=== PATIENT | female | born 1935 | race Hispanic/Latino ===

== ENCOUNTER 2018-12-07 09:54 | Outpatient (CLI) | payer MEDICARE ==
[2018-12-07 11:09] LABS: Chol/HDL Ratio 3.12 %
== END 2018-12-07 09:55 | disposition home or self-care (01) ==
LOC: LAB 09:54
PROVIDERS: ATTEND Internal Medicine
DX: Z00.01 Encounter for general adult medical examination with abnormal findings (principal); E03.9 Hypothyroidism, unspecified; E78.5 Hyperlipidemia, unspecified; I10 Essential (primary) hypertension; M54.10 Radiculopathy, site unspecified; R73.9 Hyperglycemia, unspecified
CPT/HCPCS: 36415; 80061; 83036; 84443

== ENCOUNTER 2019-05-10 09:28 | Outpatient (CLI) | payer MEDICARE ==
[2019-05-10 10:44] LABS: Chol/HDL Ratio 2.9 %
== END 2019-05-10 09:29 | disposition home or self-care (01) ==
LOC: LAB 09:28
PROVIDERS: ATTEND Internal Medicine
DX: E78.5 Hyperlipidemia, unspecified (principal); R73.9 Hyperglycemia, unspecified
CPT/HCPCS: 36415; 80061; 83036

== ENCOUNTER 2019-06-01 10:37 | Outpatient (CLI) | payer MEDICARE ==
[2019-06-01 11:23] LABS: Bacteria,Urine 4+ /HPF (Negative); Bilirubin,Urine NEG (Negative); Blood,Urine NEG (Negative); Color,Urine Yellow (Yellow); Mucus,Urine FEW /HPF; Protein,Urine <15 mg/dL mg/dL (Negative); Urobilinogen,Urine < 2.0 mg/dL (<2.0)
[2019-06-01 11:25] LABS: WBC,Urine > 182.0 /HPF (0.0-6.0)
== END 2019-06-01 10:38 | disposition home or self-care (01) ==
LOC: LAB 10:37
PROVIDERS: ATTEND Internal Medicine
DX: N39.0 Urinary tract infection, site not specified (principal)
CPT/HCPCS: 81001; 87076; 87086; 87186

== ENCOUNTER 2019-10-02 10:01 | Outpatient (CLI) | payer MEDICARE ==
[2019-10-02 11:49] LABS: Basophils % (Auto) 0.2 % (0.0-1.8); Eosinophils # (Auto) 0.2 K/mm3 (0.0-0.4); Eosinophils % (Auto) 3.2 % (0.0-4.3); Hematocrit 37.8 % (30.3-42.9); Hemoglobin 12.6 gm/dl (10.1-14.3); Lymphocytes % (Auto) 18.2 % (13.4-35.0); Mean Corpuscular HGB Conc 33 % (30-34); Mean Corpuscular Volume 89 fl (79-97); Monocytes # (Auto) 0.4 K/mm3 (0.0-0.8); Monocytes % (Auto) 6.2 % (0.0-7.3); Platelet Count 293 K/mm3 (140-440); Red Blood Count 4.23 M/mm3 (3.65-5.03); Red Cell Distribution Width 13.6 % (13.2-15.2)
[2019-10-02 11:55] LABS: Bacteria,Urine 4+ /HPF (Negative); Mucus,Urine FEW /HPF
[2019-10-02 12:00] LABS: Albumin 4.2 g/dL (3.9-5); Calcium 9.4 mg/dL (8.4-10.2)
[2019-10-02 12:10] LABS: Color,Urine Yellow (Yellow); WBC,Urine > 182.0 /HPF (0.0-6.0)
[2019-10-02 12:11] LABS: Bilirubin,Urine Negative (Negative); Blood,Urine Negative (Negative); Urobilinogen,Urine < 0.2 mg/dL (<2.0)
[2019-10-05 10:47] LABS: Vitamin D, 25-OH, D2 <4 ng/mL
== END 2019-10-02 10:02 | disposition home or self-care (01) ==
LOC: LAB 10:01
PROVIDERS: ATTEND Internal Medicine
DX: R73.03 Prediabetes (principal); E78.5 Hyperlipidemia, unspecified; N39.0 Urinary tract infection, site not specified; E03.9 Hypothyroidism, unspecified; Z13.21 Encounter for screening for nutritional disorder
CPT/HCPCS: 36415; 80053; 80061; 81001; 82306; 82607; 83036; 84443; 85025

== ENCOUNTER 2021-02-13 13:50 | Inpatient (IN) | payer MEDICARE ==
[2021-02-13] MEDS ORDERED: HYDROmorphone 1 MG/1 ML INJ ONE (14:27)
[2021-02-13] MEDS ORDERED: ONDANSETRON 4 MG/2 ML INJ ONE (14:27)
[2021-02-13] MEDS ORDERED: SODIUM CHLORIDE 0.9% 1000 ML 1,000 ML IV ONE (14:29)
[2021-02-13] MEDS ORDERED: HYDROmorphone 1 MG/1 ML INJ IV ONE ×2 (14:29→16:05)
[2021-02-13] MEDS ORDERED: ONDANSETRON 4 MG/2 ML INJ IV ONE (14:29)
--- NOTE | 2021-02-13 14:35 | Emergency Department Report ---
ED Fall HPI - General Chief Complaint: Extremity Injury, Lower Stated Complaint: HIP INJURY Time Seen by Provider: 02/13/21 14:27 Source: patient, EMS Mode of arrival: Stretcher - History of Present Illness Initial Comments: Patient is 85 years old female with no significant past medical history. Patient brought to the emergency room via EMS from home for evaluation after fall. Patient stated that she was tackled by her dog and she could not have anything to hold on and fell and landed on her left hip. Patient denied any head injury neck injury or back injury. EMS reported deformity to the left hip. Left lower extremity externally rotated. Patient received fentanyl 100 mg by EMS with no significant improvement. Upon arrival to the ER patient in severe pain. MD Complaint: fall - Related Data Allergies Allergy/AdvReac Type Severity Reaction Status Date / Time Penicillins Allergy Unknown Verified 02/13/21 14:16 Sulfa (Sulfonamide Allergy Unknown Verified 02/13/21 14:16 Antibiotics) ED Review of Systems ROS: Stated complaint: HIP INJURY Other details as noted in HPI Comment: All other systems reviewed and negative Constitutional: denies: chills, fever Respiratory: denies: cough, shortness of breath, SOB with exertion Cardiovascular: denies: chest pain, palpitations Gastrointestinal: denies: abdominal pain, nausea, vomiting Musculoskeletal: denies: back pain Neurological: denies: headache, weakness, numbness, paresthesias, confusion ED Past Medical Hx - Past Medical History Previous Medical History?: Yes - Surgical History Additional Surgical History: Hysterctomy - Social History Smoking Status: Never Smoker ED Physical Exam - General Limitations: Physical Limitation General appearance: alert, in distress - Head Head exam: Present: atraumatic, normocephalic, normal inspection - Eye Eye exam: Present: normal appearance, PERRL - ENT ENT exam: Present: normal exam, normal orophraynx, mucous membranes moist - Neck Neck exam: Present: normal inspection, full ROM. Absent: tenderness, meningismus - Respiratory Respiratory exam: Present: normal lung sounds bilaterally - Cardiovascular Cardiovascular Exam: Present: regular rate, normal rhythm, normal heart sounds - GI/Abdominal GI/Abdominal exam: Present: soft, normal bowel sounds. Absent: distended, tenderness, guarding, rebound, rigid, organomegaly, mass, bruit, pulsatile mass, hernia - Extremities Exam Extremities exam: Present: normal inspection, full ROM, normal capillary refill. Absent: tenderness - Back Exam Back exam: Present: normal inspection, full ROM. Absent: CVA tenderness (R), CVA tenderness (L) - Neurological Exam Neurological exam: Present: alert, oriented X3, CN II-XII intact - Psychiatric Psychiatric exam: Present: normal mood - Skin Skin exam: Present: warm, intact, normal color ED Course Vital Signs 02/13/21 02/13/21 02/13/21 14:02 14:15 14:20 Temperature Pulse Rate 62 62 68 Respiratory 14 11 L 12 Rate Blood Pressure Blood Pressure 151/59 [Left] O2 Sat by Pulse 97 97 Oximetry 02/13/21 02/13/21 02/13/21 14:45 15:20 18:01 Temperature 97.7 F Pulse Rate 64 Respiratory 12 Rate Blood Pressure 157/73 175/84 Blood Pressure [Left] O2 Sat by Pulse 90 100 Oximetry - Consultations Consultation #1: 02/13/21 16:35 I discussed the patient with Dr. Loza. He reviewed the images. Dr. Loza stated that he is unable to take the patient because he is traveling tomorrow and he advised to transfer the patient to another facility for further management. ED Medical Decision Making - Lab Data Result diagrams: 02/13/21 14:37 02/13/21 14:37 - Radiology Data Radiology results: report reviewed - Medical Decision Making Patient is 85 years old female with no significant past medical history. Patient brought to the emergency room via EMS from home for evaluation after fall. Patient stated that she was tackled by her dog and she could not have anything to hold on and fell and landed on her left hip. Patient denied any head injury neck injury or back injury. EMS reported deformity to the left hip. Left lower extremity externally rotated. Patient received fentanyl 100 mg by EMS with no significant improvement. Upon arrival to the ER patient in severe p ain. Patient received multiple pain medication. Left femur x-ray showed mildly displaced intertrochanteric fracture. I discussed the patient with Dr. Otero from [facility] orthopedics, he accepted the patient to be transferred to [place] for further management. I received a call from the hospital [employer] indicating that she can help accommodate the patient surgery in the morning. Dr. Loza accepted the patient to be admitted to the hospital. I discussed the patient with Dr. Reyes, hospitalist on-call he agreed to admit the patient for further management. I notified [place] that the patient is going to be admitted in our hospital and I thank them for their help. Critical Care Time: Yes Critical care time in (mins) excluding proc time.: 30 Critical care attestation.: If time is entered above; I have spent that time in minutes in the direct care of this critically ill patient, excluding procedure time. ED Disposition Clinical Impression: Closed intertrochanteric fracture of left femur Disposition: OP ADMIT IP TO THIS HOSP Is pt being admited?: Yes Condition: Stable Referrals: PRIMARY CARE, [Primary Care Provider] - 3-5 Days
[2021-02-13 15:01] LABS: Hematocrit 33.2 % (30.3-42.9); Hemoglobin 11.5 gm/dl (10.1-14.3); Mean Corpuscular HGB Conc 35 % (30-34); Mean Corpuscular Volume 88 fl (79-97); Platelet Count 296 K/mm3 (140-440); Red Blood Count 3.77 M/mm3 (3.65-5.03)
[2021-02-13 15:16] LABS: INR 1.08 (0.87-1.13)
[2021-02-13 15:17] LABS: Partial Thromboplastin Time 29.3 Sec. (24.2-36.6)
[2021-02-13 15:18] LABS: BUN/Creatinine Ratio 14; Blood Urea Nitrogen 11 mg/dL (7-17); Calcium 8.6 mg/dL (8.4-10.2); Hemolysis Index 3
--- NOTE | 2021-02-13 15:29 | XRay Report ---
CHEST 1 VIEW INDICATION: Fall. Pain. COMPARISON: None FINDINGS: Support devices: None. Heart: Within normal limits. Lungs/Pleura: No acute air space or interstitial disease. Additional findings: None. IMPRESSION: No acute findings. PELVIS ONE VIEW INDICATION: Fall, pain. COMPARISON: None. IMPRESSION: Mildly displaced intertrochanteric fracture is identified in the proximal left femur. Th e visualized right femur and pelvic bones are intact. Normal articulation at the hip joints. No sign ificant DJD. Signer Name: Nick Gupta Jr, MD Signed: 02/13/2021 3:25 PM Workstation Name: [id number]
[2021-02-13 16:11] LABS: Basophils % (Auto) 0.2 % (0.0-1.8); Eosinophils # (Auto) 0.3 K/mm3 (0.0-0.4); Eosinophils % (Auto) 2.2 % (0.0-4.3); Lymphocytes % (Auto) 8.1 % (13.4-35.0); Monocytes # (Auto) 0.5 K/mm3 (0.0-0.8)
[2021-02-13] MEDS ORDERED: fentaNYL 250 MCG/5 ML INJ IV ONE (18:54)
[2021-02-13] MEDS ORDERED: fentaNYL 100 MCG/2 ML INJ IV ONE (19:00)
[2021-02-13] MEDS ORDERED: ACETAMINOPHEN 325 MG TAB PO PRN (21:21)
[2021-02-13] MEDS ORDERED: HYDROcodone/ACETAMINOPHEN 5-325 MG TAB PO PRN (21:21)
[2021-02-13] MEDS ORDERED: NON-FORMULARY EACH (Levothyroxine Sodium [Levothyroxine] 100 MCG Capsule) PO SCH (21:30)
[2021-02-13] MEDS: ONDANSETRON 4 MG/2 ML INJ IV PRN (21:35)
[2021-02-13] MEDS ORDERED: OXCARBAZEPINE 150 MG PO SCH (22:00)
[2021-02-13] MEDS ORDERED: PROPRANOLOL HCL 60 MG PO SCH (22:00)
[2021-02-13] MEDS ORDERED: OXYMETAZOLINE OU SCH (22:00)
[2021-02-13] MEDS ORDERED: FAMOTIDINE 20 MG/2 ML INJ IV SCH (22:00)
[2021-02-13] MEDS ORDERED: PROPRANOLOL 40 MG TAB PO SCH (22:00)
[2021-02-13] MEDS: SODIUM CHLORIDE 0.9% 1000 ML 1,000 ML IV SCH (23:01)
[2021-02-13] MEDS: MORPHINE 4 MG/1 ML INJ IV PRN (23:02)
[2021-02-13] MEDS: TOBRADEX 0.1-0.3% OPHTH OINT 3.5 GM OU SCH (23:18)
[2021-02-13] MEDS: OXcarbazepine 150 MG TAB PO SCH (23:18)
[2021-02-13] MEDS: LATANOPROST 0.005% OPHTH SOLN 2.5 ML OU SCH (23:20)
[2021-02-14] MEDS ORDERED: propofoL 200 MG/20 ML VIAL IV ONE (05:25)
[2021-02-14] MEDS ORDERED: BUPIVACAINE/PF (0.5%) 5 MG/1 ML 30 ML VIAL INFILTRATI ONE ×2 (05:42→07:49)
[2021-02-14] MEDS ORDERED: MORPHINE 10 MG/1 ML INJ ONE (05:42)
[2021-02-14] MEDS ORDERED: KETOROLAC 30 MG/1 ML INJ ONE (05:42)
[2021-02-14] MEDS ORDERED: SODIUM CHLORIDE 0.9% 50 ML ONE (05:43)
[2021-02-14] MEDS ORDERED: SODIUM CHLORIDE 0.9% 100 ML ONE (05:43)
--- NOTE | 2021-02-14 06:17 | History and Physical Report ---
History of Present Illness Date of examination: 02/13/21 Date of admission: 02/13/21 19:05 Chief complaint: Left hip pain after fall this morning History of present illness: 85-year-old female with no significant past medical history had a fall this morning. Patient was apparently attacked by the dog and fell down and landed on her left hip. Painful range of motion of the left hip. EMS was called. There was no movement in the left lower extremity and was extremely painful. Left lower extremity was externally rotated. Patient received fentanyl 100 mg via IV route. In the emergency room patient is in severe pain with pain-pain is scale of 1-10. No significant past medical history. No fever or chills. Patient is a poor historian. - Past Medical History Previous Medical History?: Yes - Surgical History Additional Surgical History: Hysterctomy - Social History Smoking Status: Never Smoker faHtnmily history Htn Review of Systems ROS: Constitutional no weight loss or weight gain no fever or chills HEENT no sore throat no post nasal drip no diplopia Neck no neck stiffness no lymph gland enlargement Chest and lungs no shortness of breath cough or wheezing CVS no chest pain no diaphoresis no palpitations GI no nausea no vomiting no diarrhea Genitourinary system no dysuria no flank pain Musculoskeletal system severe left hip pain and decreased range of motion in the left hip SPINNER TENDER no altered sensorium Skin no rash no itching Psychiatric no depression no homicidal or suicidal tendencies Hematologic no lymphedema or bruising Endocrine no polydipsia no polyuria no cold intolerance no heat intolerance Medications and Allergies Allergies Allergy/AdvReac Type Severity Reaction Status Date / Time Penicillins Allergy Unknown Verified 02/13/21 14:16 Sulfa (Sulfonamide Allergy Unknown Verified 02/13/21 14:16 Antibiotics) Home Medications Medication Instructions Recorded Confirmed Last Taken Type Alendronate Sodium [Fosamax] 70 mg PO QWEEK 02/13/21 02/13/21 Unknown History Latanoprost 0.005% 1 drop OU QHS 02/13/21 02/13/21 Unknown History Levothyroxine Sodium 100 mcg PO QDAY 02/13/21 02/13/21 Unknown History [Levothyroxine] OXcarbazepine [Oxtellar XR] 150 mg PO BID 02/13/21 02/13/21 Unknown History Oxymetazoline HCl/Pf [Upneeq 0.1% 1 drop OU BID 02/13/21 02/13/21 Unknown History Eye Drop] Propranolol HCl 60 mg PO BID 02/13/21 02/13/21 Unknown History Tobramycin/Dexameth 0.1-0.3% 1 applic OU QHS 02/13/21 02/13/21 Unknown History [Tobradex] Active Meds: Active Medications Acetaminophen (Acetaminophen 325 Mg Tab) 650 mg PO Q4H PRN PRN Reason: Pain MILD(1-3)/Fever >100.5/COLLINS Hydrocodone Bitart/Acetaminophen (Hydrocodone/Acetaminophen 5-325 Mg Tab) 2 each PO Q6H PRN PRN Reason: Pain, Moderate (4-6) Alendronate Sodium (Alendronate Sodium 70 Mg Tab) 70 mg PO Rain [facility] Famotidine (Famotidine 20 Mg/2 Ml Inj) 20 mg IV BID [facility] Last Admin: 02/13/21 23:12 Dose: 20 mg Documented by: Sodium Chloride (Nacl 0.9% 1000 Ml) 1,000 mls @ 75 mls/hr IV DIRECT [facility] Last Admin: 02/13/21 23:01 Dose: 75 mls/hr Documented by: Latanoprost (Latanoprost 0.005% Ophth Soln 2.5 Ml) 1 drops OU QHS [facility] Last Admin: 02/13/21 23:20 Dose: 1 drops Documented by: Levothyroxine Sodium (Levothyroxine 100 Mcg Tab) 100 mcg PO DAILY@0600 [facility] Miscellaneous Medication (Oxymetazoline Hcl/Pf [Upneeq 0.1% Eye Drop]) 1 drop OU BID [facility] Morphine Sulfate (Morphine 4 Mg/1 Ml Inj) 4 mg IV Q4H PRN PRN Reason: Pain , Severe (7-10) Last Admin: 02/13/21 23:02 Dose: 4 mg Documented by: Ondansetron HCl (Ondansetron 4 Mg/2 Ml Inj) 4 mg IV Q8H PRN PRN Reason: Nausea And Vomiting Last Admin: 02/13/21 21:35 Dose: 4 mg Documented by: Oxcarbazepine (Oxcarbazepine 150 Mg Tab) 150 mg PO BID [facility] Last Admin: 02/13/21 23:18 Dose: 150 mg Documented by: Propranolol HCl (Propranolol 40 Mg Tab) 60 mg PO BID [facility] Last Admin: 02/13/21 23:15 Dose: 60 mg Documented by: Sodium Chloride (Sodium Chloride 0.9% 10 Ml Flush Syringe) 10 ml IV BID [facility] Last Admin: 02/13/21 23:20 Dose: 10 ml Documented by: Sodium Chloride (Sodium Chloride 0.9% 10 Ml Flush Syringe) 10 ml IV PRN PRN PRN Reason: LINE FLUSH Tobramycin/Dexamethasone (Tobradex 0.1-0.3% Ophth Oint 3.5 Gm) 1 inch OU QHS [facility] Last Admin: 02/13/21 23:18 Dose: 1 inch Documented by: Exam - Constitutional Vitals: Temp Pulse Resp BP Pulse Ox 97.9 F 58 L 18 156/76 96 02/13/21 23:42 02/13/21 23:42 02/13/21 23:42 02/13/21 23:42 02/13/21 23:42 General appearance: Present: mild distress, well-nourished - EENT Eyes: Present: PERRL ENT: hearing intact, clear oral mucosa - Neck Neck: Present: supple, normal ROM - Respiratory Respiratory effort: normal Respiratory: bilateral: CTA - Cardiovascular Heart rate: 78 Rhythm: regular Heart Sounds: Present: S1 & S2. Absent: rub, click - Extremities Extremities: pulses symmetrical, No edema, abnormal (Decreased range of motion in the left hip. Left lower extremity externally rotated and abducted) Extremity abnormal: other (Left lower extremity externally rotated and epinephrine.) Peripheral Pulses: within normal limits - Abdominal General gastrointestinal: Present: soft, non-tender, non-distended, normal bowel sounds Female genitourinary: Present: normal - Integumentary Integumentary: Present: clear, warm, dry - Musculoskeletal Musculoskeletal: gait normal, strength equal bilaterally - Psychiatric Psychiatric: appropriate mood/affect, intact judgment & insight - Neurologic Neurologic: CNII-XII intact, moves all extremities Results - Labs CBC & Chem 7: 02/13/21 14:37 02/13/21 14:37 Labs: Laboratory Last Values WBC 12.5 K/mm3 (4.5-11.0) H 02/13/21 14:37 RBC 3.77 M/mm3 (3.65-5.03) 02/13/21 14:37 Hgb 11.5 gm/dl (10.1-14.3) 02/13/21 14:37 Hct 33.2 % (30.3-42.9) 02/13/21 14:37 MCV 88 fl (79-97) 02/13/21 14:37 MCH 31 pg (28-32) 02/13/21 14:37 MCHC 35 % (30-34) H 02/13/21 14:37 RDW 14.0 % (13.2-15.2) 02/13/21 14:37 Plt Count 296 K/mm3 (140-440) 02/13/21 14:37 Lymph % (Auto) 8.1 % (13.4-35.0) L 02/13/21 14:37 [place] % (Auto) 4.0 % (0.0-7.3) 02/13/21 14:37 Eos % (Auto) 2.2 % (0.0-4.3) 02/13/21 14:37 Baso % (Auto) 0.2 % (0.0-1.8) 02/13/21 14:37 Lymph # (Auto) 1.0 K/mm3 (1.2-5.4) L 02/13/21 14:37 Carson # (Auto) 0.5 K/mm3 (0.0-0.8) 02/13/21 14:37 Eos # (Auto) 0.3 K/mm3 (0.0-0.4) 02/13/21 14:37 Baso # (Auto) 0.0 K/mm3 (0.0-0.1) 02/13/21 14:37 Add Manual Diff Complete 02/13/21 14:37 Seg Neutrophils % 85.5 % (40.0-70.0) H 02/13/21 14:37 Nucleated RBC % Not Reportable 02/13/21 14:37 Seg Neutrophils # 10.4 K/mm3 (1.8-7.7) H 02/13/21 14:37 WBC Morphology Not Reportable 02/13/21 14:37 Hypersegmented Neuts Not Reportable 02/13/21 14:37 Hyposegmented Neuts Not Reportable 02/13/21 14:37 Hypogranular Neuts Not Reportable 02/13/21 14:37 Smudge Cells Not Reportable 02/13/21 14:37 Toxic Granulation Not Reportable 02/13/21 14:37 Toxic Vacuolation Not Reportable 02/13/21 14:37 Dohle Bodies Not Reportable 02/13/21 14:37 Pelger-Huet Anomaly Not Reportable 02/13/21 14:37 Bailey Rods Not Reportable 02/13/21 14:37 Platelet Estimate Not Reportable 02/13/21 14:37 Clumped Platelets Not Reportable 02/13/21 14:37 Plt Clumps, EDTA Not Reportable 02/13/21 14:37 Large Platelets Not Reportable 02/13/21 14:37 Giant Platelets Not Reportable 02/13/21 14:37 Platelet Satelliting Not Reportable 02/13/21 14:37 Plt Morphology Comment Not Reportable 02/13/21 14:37 RBC Morphology Not Reportable 02/13/21 14:37 Dimorphic RBCs Not Reportable 02/13/21 14:37 Polychromasia Not Reportable 02/13/21 14:37 Hypochromasia Not Reportable 02/13/21 14:37 Poikilocytosis Not Reportable 02/13/21 14:37 Anisocytosis Not Reportable 02/13/21 14:37 Microcytosis Not Reportable 02/13/21 14:37 Macrocytosis Not Reportable 02/13/21 14:37 Spherocytes Not Reportable 02/13/21 14:37 Pappenheimer Bodies Not Reportable 02/13/21 14:37 Sickle Cells Not Reportable 02/13/21 14:37 Target Cells Not Reportable 02/13/21 14:37 Tear Drop Cells Not Reportable 02/13/21 14:37 Ovalocytes Not Reportable 02/13/21 14:37 Helmet Cells Not Reportable 02/13/21 14:37 [place] Bodies Not Reportable 02/13/21 14:37 [place] Rings Not Reportable 02/13/21 14:37 [place] Cells Not Reportable 02/13/21 14:37 Bite Cells Not Reportable 02/13/21 14:37 Crenated Cell Not Reportable 02/13/21 14:37 Elliptocytes Not Reportable 02/13/21 14:37 Acanthocytes (Spur) Not Reportable 02/13/21 14:37 Rouleaux Not Reportable 02/13/21 14:37 Hemoglobin C Crystals Not Reportable 02/13/21 14:37 Schistocytes Not Reportable 02/13/21 14:37 Malaria parasites Not Reportable 02/13/21 14:37 Naman Bodies Not Reportable 02/13/21 14:37 Hem Pathologist Commnt Not Reportable 02/13/21 14:37 PT 14.5 Sec. (12.2-14.9) 02/13/21 14:37 INR 1.08 (0.87-1.13) 02/13/21 14:37 APTT 29.3 Sec. (24.2-36.6) 02/13/21 14:37 Sodium 124 mmol/L (137-145) L 02/13/21 14:37 Potassium 4.3 mmol/L (3.6-5.0) 02/13/21 14:37 Chloride 91.5 mmol/L (98-107) L 02/13/21 14:37 Carbon Dioxide 22 mmol/L (22-30) 02/13/21 14:37 Anion Gap 15 mmol/L 02/13/21 14:37 BUN 11 mg/dL (7-17) 02/13/21 14:37 Creatinine 0.8 mg/dL (0.6-1.2) 02/13/21 14:37 Estimated GFR > 60 ml/min 02/13/21 14:37 BUN/Creatinine Ratio 14 % 02/13/21 14:37 Glucose 135 mg/dL (65-100) H 02/13/21 14:37 Calcium 8.6 mg/dL (8.4-10.2) 02/13/21 14:37 Blood Type A POSITIVE 02/13/21 14:37 Antibody Screen Positive 02/13/21 14:37 - Imaging and Cardiology Imaging and Cardiology: Chest x-ray Mildly displaced inferior trochanteric fracture is identified in the proximal left femur. The visualized right femur and pelvic bones are intact. Normal articulation and healing plan. No significant DJD. Pelvis x-ray Mildly displaced intertrochanteric fracture of the proximal left femur. Montanez/IV: Voiding Method Indwelling Catheter Assessment and Plan Advance Directives: Yes (Full code) VTE prophylaxis?: Chemical Plan of care discussed with patient/family: Yes - Patient Problems (1) Closed intertrochanteric fracture of left femur Current Visit: Yes Status: Acute Plan to address problem: IV fluids Pain control ORIF tomorrow morning Dr. Loza consulted (2) Hyponatremia Current Visit: Yes Status: Acute Plan to address problem: IV fluids for now (3) DVT prophylaxis Current Visit: Yes Status: Acute Plan to address problem: On heparin and GI prophylaxis
[2021-02-14] MEDS ORDERED: ePHEDrine SULFATE 50 MG/1 ML INJ ONE (06:25)
[2021-02-14] MEDS ORDERED: ONDANSETRON 4 MG/2 ML INJ ONE (06:38)
[2021-02-14] MEDS ORDERED: HYDROmorphone 1 MG/1 ML INJ ONE (06:39)
[2021-02-14] MEDS: LEVOTHYROXINE 100 MCG TAB PO SCH (06:46)
[2021-02-14] MEDS ORDERED: VANCOMYCIN 1000 MG INJ ONE (06:47)
--- NOTE | 2021-02-14 06:55 | Anesthesia Day of Surgery ---
Anesthesia Day of Surgery - Day of Surgery Patient Examined: Yes Patient H&P Reviewed: Yes Patient is NPO: Yes
--- NOTE | 2021-02-14 06:55 | Anesthesia Consultation ---
Anesthesia Consult and Med Hx Date of service: 02/14/21 - Airway Anesthetic Teeth Evaluation: Edentulous ROM Head & Neck: Adequate Mental/Hyoid Distance: Adequate Mallampati Class: Class II Intubation Access Assessment: Good - Pulmonary Exam CTA: Yes - Cardiac Exam Cardiac Exam: RRR - Pre-Operative Health Status ASA Pre-Surgery Classification: ASA2 Proposed Anesthetic Plan: General (s/p fall) - Central Nervous System Hx Psychiatric Problems: No
[2021-02-14] MEDS ORDERED: LACTATED RINGERS 1,000 ML ONE (07:07)
[2021-02-14] MEDS ORDERED: PHENYLEPHRINE 10 MG/1 ML INJ SDV ONE (07:24)
[2021-02-14] MEDS ORDERED: SODIUM CHLORIDE 0.9% 1000 ML 1,000 ML ONE (07:24)
--- NOTE | 2021-02-14 07:25 | Consultation ---
History of Present Illness - HPI Consult date: 02/14/21 Consult reason: fracture (85-year-old female who complains of left hip pain after a fall today at home patient states she was accidentally ran over by her dogs lost her balance and landed onto her left side states she was unable to weight-bear afterwards she denies any other injuries) Medications and Allergies Allergies Allergy/AdvReac Type Severity Reaction Status Date / Time Penicillins Allergy Unknown Verified 02/13/21 14:16 Sulfa (Sulfonamide Allergy Unknown Verified 02/13/21 14:16 Antibiotics) Home Medications Medication Instructions Recorded Confirmed Last Taken Type Alendronate Sodium [Fosamax] 70 mg PO QWEEK 02/13/21 02/13/21 Unknown History Latanoprost 0.005% 1 drop OU QHS 02/13/21 02/13/21 Unknown History Levothyroxine Sodium 100 mcg PO QDAY 02/13/21 02/13/21 Unknown History [Levothyroxine] OXcarbazepine [Oxtellar XR] 150 mg PO BID 02/13/21 02/13/21 Unknown History Oxymetazoline HCl/Pf [Upneeq 0.1% 1 drop OU BID 02/13/21 02/13/21 Unknown History Eye Drop] Propranolol HCl 60 mg PO BID 02/13/21 02/13/21 Unknown History Tobramycin/Dexameth 0.1-0.3% 1 applic OU QHS 02/13/21 02/13/21 Unknown History [Tobradex] Active Meds: Active Medications Acetaminophen (Acetaminophen 325 Mg Tab) 650 mg PO Q4H PRN PRN Reason: Pain MILD(1-3)/Fever >100.5/COLLINS Hydrocodone Bitart/Acetaminophen (Hydrocodone/Acetaminophen 5-325 Mg Tab) 2 each PO Q6H PRN PRN Reason: Pain, Moderate (4-6) Alendronate Sodium (Alendronate Sodium 70 Mg Tab) 70 mg PO Rain [facility] Famotidine (Famotidine 20 Mg/2 Ml Inj) 20 mg IV BID [facility] Last Admin: 02/13/21 23:12 Dose: 20 mg Documented by: Sodium Chloride (Nacl 0.9% 1000 Ml) 1,000 mls @ 75 mls/hr IV DIRECT [facility] Last Admin: 02/13/21 23:01 Dose: 75 mls/hr Documented by: Latanoprost (Latanoprost 0.005% Ophth Soln 2.5 Ml) 1 drops OU QHS [facility] Last Admin: 02/13/21 23:20 Dose: 1 drops Documented by: Levothyroxine Sodium (Levothyroxine 100 Mcg Tab) 100 mcg PO DAILY@0600 [facility] Miscellaneous Medication (Oxymetazoline Hcl/Pf [Upneeq 0.1% Eye Drop]) 1 drop OU BID [facility] Morphine Sulfate (Morphine 4 Mg/1 Ml Inj) 4 mg IV Q4H PRN PRN Reason: Pain , Severe (7-10) Last Admin: 02/13/21 23:02 Dose: 4 mg Documented by: Ondansetron HCl (Ondansetron 4 Mg/2 Ml Inj) 4 mg IV Q8H PRN PRN Reason: Nausea And Vomiting Last Admin: 02/13/21 21:35 Dose: 4 mg Documented by: Oxcarbazepine (Oxcarbazepine 150 Mg Tab) 150 mg PO BID [facility] Last Admin: 02/13/21 23:18 Dose: 150 mg Documented by: Propranolol HCl (Propranolol 40 Mg Tab) 60 mg PO BID [facility] Last Admin: 02/13/21 23:15 Dose: 60 mg Documented by: Sodium Chloride (Sodium Chloride 0.9% 10 Ml Flush Syringe) 10 ml IV BID [facility] Last Admin: 02/13/21 23:20 Dose: 10 ml Documented by: Sodium Chloride (Sodium Chloride 0.9% 10 Ml Flush Syringe) 10 ml IV PRN PRN PRN Reason: LINE FLUSH Tobramycin/Dexamethasone (Tobradex 0.1-0.3% Ophth Oint 3.5 Gm) 1 inch OU QHS [facility] Last Admin: 02/13/21 23:18 Dose: 1 inch Documented by: Physical Examination - Physical exam Narrative exam: On physical examination significant musculoskeletal findings relates to the lower extremity here on the left patient is noted to have mild to moderate swelling there is tenderness over the proximal thigh no obvious limb length discrepancy is noted active and passive range of motion significantly decreased distal neurovascular status is intact Plain x-rays from the emergency room visit were reviewed by me and show a minimally displaced left intertrochanteric hip fracture Eyes: PERRL ENT: Positive: clear oral mucosa Respiratory effort: normal Respiratory: bilateral: CTA Rhythm: regular Heart Sounds: Positive: S1 & S2 General gastrointestinal: Positive: soft, non-tender, non-distended, normal bowel sounds Integumentary: clear, warm, dry Neurologic: Positive: CNII-XII intact, moves all extremities, gait normal. Negative: focal deficits Assessment and Plan Assessment patient has a left intertrochanteric hip fracture Plan recommendations -internal fixation with intramedullary nail left hip
[2021-02-14] MEDS ORDERED: KETOROLAC 30 MG/1 ML INJ IV PRN (07:29)
--- NOTE | 2021-02-14 07:29 | Procedure Note ---
Date of procedure: 02/14/21 Pre-op diagnosis: Displaced left intertrochanteric hip fracture Post-op diagnosis: same Procedure: Closed reduction insertion of intramedullary nail [left] femur Procedure The patient was brought to the OR on the hospital bed sHe was following induction and intubation by anesthesia the patient was then transferred onto the [place] table supine the legs were placed in longitudinal traction. The C-arm fluoroscope was brought in and the hip was reduced in both the AP and lateral planes. Next the [left] hip was prepped and draped in the usual sterile manner a stab wound was made posterior and superior to the greater trochanter this is carried down sharply through skin and fascia using a Bojorquez elevator the soft tissues were split down to the tip of the greater trochanter A large awl was used to enter the proximal medullary canal this was followed by placement of the guidewire again under C-arm visualization the tip of the guidewire was seen in the distal femur next the measurements were obtained a 11 x 400 intramedullary nail was selected this was followed by reaming up to a 12-1/2 mm diameter following this the intramedullary nail was inserted and a antegrade fashion down the proximal canal into the distal femur next the targeting device for the helical blade was placed and the stab wound was made along the lateral border of the thigh again under C-arm visualization a guidewire was inserted into the femoral neck again measuring this delay a 80 mm helical blade was chosen the forearm or near cortex was drilled followed by insertion of the proximal helical blade next the locking screw proximally was engaged again under C-arm direction AP and lateral views were obtained showing good reduction at the fracture and placement of the hardware following this a wound was copiously irrigated and was closed in a standard routine fashion and the patient tolerated the procedure there were no complications and he was sent to postanesthesia recovery in stable condition Anesthesia: GETA Surgeon: RODGER BOCANEGRA (Kiley Gayle 1st assist) Estimated blood loss: 50-100ml Pathology: none Condition: stable Disposition: PACU
[2021-02-14] MEDS ORDERED: MORPHINE 10 MG/1 ML INJ IV ONE (07:49)
[2021-02-14] MEDS ORDERED: KETOROLAC 30 MG/1 ML INJ IV ONE (07:50)
[2021-02-14] MEDS ORDERED: SODIUM CHLORIDE 0.9% 250 ML IVPB IV ONE (07:50)
[2021-02-14 09:59] LABS: Hematocrit 31.1 % (30.3-42.9); Hemoglobin 10.5 gm/dl (10.1-14.3); Mean Corpuscular HGB Conc 34 % (30-34); Mean Corpuscular Volume 90 fl (79-97); Platelet Count 271 K/mm3 (140-440); Red Blood Count 3.47 M/mm3 (3.65-5.03); Red Cell Distribution Width 14.3 % (13.2-15.2)
[2021-02-14] MEDS ORDERED: FAMOTIDINE 20 MG/2 ML INJ IV SCH (10:00)
[2021-02-14] MEDS ORDERED: FAMOTIDINE 20 MG TAB PO SCH (10:00)
[2021-02-14 10:30] LABS: Alanine Aminotransferase 12 units/L (7-56); Albumin 3.4 g/dL (3.9-5); Blood Urea Nitrogen 9 mg/dL (7-17); Calcium 8.1 mg/dL (8.4-10.2); Hemolysis Index 3
[2021-02-14 10:40] LABS: BUN/Creatinine Ratio 15
[2021-02-14] MEDS: OXcarbazepine 150 MG TAB PO SCH ×2 (10:43→21:32)
--- NOTE | 2021-02-14 13:00 | Post Anesthesia Evaluation ---
- Post Anesthesia Evaluation Patient Participated: Yes Airway Patent: Yes Stable Respiratory Function: Yes Nausea/Vomiting: No Temp > 96.8F: Yes Pain Manageable: Yes Adequeate Hydration: Yes Anesthesia Complications: No Block Receding Appropriately: Not Applicable Patient on Ventilator: No
[2021-02-14 13:15] LABS: Band Neutrophils # (Manual) 2.5 K/mm3; Total Cells Counted 100
[2021-02-14 13:16] LABS: RBC Morphology Normal; Toxic Granulation 1+
[2021-02-14 13:17] LABS: Platelet Estimate Consistent w Auto
--- NOTE | 2021-02-14 13:44 | Progress Note ---
Subjective Date of service: 02/14/21 Interval history: Left hip pain after fall this morning History of present illness: 85-year-old female with no significant past medical history had a fall this morning. Patient was apparently attacked by the dog and fell down and landed on her left hip. Painful range of motion of the left hip. EMS was called. There was no movement in the left lower extremity and was extremely painful. Left lower extremity was externally rotated. Patient received fentanyl 100 mg via IV route. In the emergency room patient is in severe pain with pain-pain is scale of 1-10. No significant past medical history. No fever or chills. Patient is a poor historian. 02/14 patient is awake and alert and not in any distress, complains of pain in the left hip from surgery, she denies any fever or chills, denies chest pain or shortness of breath, denies dysuria or frequency. Lab results reviewed. Ortho note reviewed Assessment and plan/ Displaced left intertrochanteric hip fracture Status post surgery with IM nailing Pain control DVT prophylaxis with Lovenox PT consult For subacute rehab placement Hyponatremia Improving Serum sodium up to 129 this morning Monitor electrolytes leukocytosis Unclear etiology Suspect reactive secondary to stress Check UA Chest x-ray reviewed History of trigeminal neuralgia Continue oxcarbazepine and propranolol However will decrease the propranolol to 40 mg twice daily secondary to borderline low normal blood pressure History of hypothyroidism Continue Synthroid Glaucoma Continue home eyedrops Hyperglycemia A1c 6.0 Objective - Constitutional Vitals: Vital Signs - 12hr 02/14/21 02/14/21 02/14/21 04:27 07:45 07:50 Temperature 97.6 F 97.0 F L Pulse Rate 58 L 94 H 95 H Respiratory 18 12 14 Rate Blood Pressure 147/68 132/72 127/72 Blood Pressure [Left] O2 Sat by Pulse 100 92 95 Oximetry 02/14/21 02/14/21 02/14/21 07:55 08:00 08:15 Temperature Pulse Rate 90 87 82 Respiratory 15 16 20 Rate Blood Pressure 117/67 136/73 144/76 Blood Pressure [Left] O2 Sat by Pulse 98 95 99 Oximetry 02/14/21 02/14/21 02/14/21 08:30 08:45 08:58 Temperature 97.8 F 97.8 F 97.6 F Pulse Rate 84 79 80 Respiratory 16 16 18 Rate Blood Pressure 132/72 135/69 115/70 Blood Pressure [Left] O2 Sat by Pulse 100 100 98 Oximetry 02/14/21 02/14/21 02/14/21 09:00 11:32 11:36 Temperature 97.6 F Pulse Rate 80 Respiratory 20 Rate Blood Pressure 115/70 80/44 Blood Pressure 100/55 [Left] O2 Sat by Pulse 99 100 Oximetry General appearance: Present: no acute distress - EENT Eyes: PERRL, EOM intact ENT: hearing intact, clear oral mucosa - Neck Neck: supple, normal ROM, no masses or JVD - Respiratory Respiratory effort: normal Respiratory: bilateral: CTA - Breasts Breasts: deferred - Cardiovascular Rhythm: regular Heart Sounds: Present: S1 & S2 Extremities: No edema - Gastrointestinal General gastrointestinal: Present: soft, non-tender Rectal Exam: deferred - Genitourinary Female genitourinary: deferred - Integumentary Integumentary: clear - Neurologic Neurologic: no focal deficits - Psychiatric Psychiatric: appropriate mood/affect - Labs CBC & Chem 7: 02/14/21 09:25 02/14/21 09:25 Labs: Abnormal lab results 02/13/21 02/13/21 02/13/21 Range/Units 14:37 14:37 14:37 WBC 12.5 H (4.5-11.0) K/mm3 RBC (3.65-5.03) M/mm3 MCHC 35 H (30-34) % Lymph % (Auto) 8.1 L (13.4-35.0) % Lymph # (Auto) 1.0 L (1.2-5.4) K/mm3 Seg Neutrophils % 85.5 H (40.0-70.0) % Seg Neuts % (Manual) (40.0-70.0) % Seg Neutrophils # 10.4 H (1.8-7.7) K/mm3 Seg Neutrophils # Man (1.8-7.7) K/mm3 Lymphocytes # (Manual) (1.2-5.4) K/mm3 Sodium 124 L (137-145) mmol/L Chloride 91.5 L (98-107) mmol/L Glucose 135 H (65-100) mg/dL Calcium (8.4-10.2) mg/dL Albumin (3.9-5) g/dL Crossmatch See Detail 02/14/21 02/14/21 Range/Units 09:25 09:25 WBC 16.4 H (4.5-11.0) K/mm3 RBC 3.47 L (3.65-5.03) M/mm3 MCHC (30-34) % Lymph % (Auto) (13.4-35.0) % Lymph # (Auto) (1.2-5.4) K/mm3 Seg Neutrophils % (40.0-70.0) % Seg Neuts % (Manual) 82.0 H (40.0-70.0) % Seg Neutrophils # (1.8-7.7) K/mm3 Seg Neutrophils # Man 13.4 H (1.8-7.7) K/mm3 Lymphocytes # (Manual) 0.0 L (1.2-5.4) K/mm3 Sodium 129 L (137-145) mmol/L Chloride 94.7 L (98-107) mmol/L Glucose 120 H (65-100) mg/dL Calcium 8.1 L (8.4-10.2) mg/dL Albumin 3.4 L (3.9-5) g/dL Crossmatch
[2021-02-14] MEDS: PROPRANOLOL 40 MG TAB PO SCH ×2 (15:00)
--- NOTE | 2021-02-14 15:32 | XRay Report ---
LEFT FEMUR 1 VIEW INDICATION: LT INTEROCHANTERIC FX/LT FEMUR RODDING. COMPARISON: 01/14/2021 IMPRESSION: 18 seconds of fluoroscopy time was provided by radiology during internal fixation of a p roximal left femur fracture. 3 fluoroscopic images are presented demonstrating anatomic alignment at the fracture site post fixation. Please correlate with the procedural report as needed. Signer Name: Nick Gupta Jr, MD Signed: 02/14/2021 3:28 PM Workstation Name: [id number]
[2021-02-14] MEDS: oxyCODONE /ACETAMINOPHEN 5-325MG TAB PO PRN (21:31)
[2021-02-14] MEDS: TOBRADEX 0.1-0.3% OPHTH OINT 3.5 GM OU SCH (21:32)
[2021-02-14] MEDS: LATANOPROST 0.005% OPHTH SOLN 2.5 ML OU SCH (21:33)
[2021-02-15] MEDS: PROPRANOLOL 40 MG TAB PO SCH ×3 (04:08→21:40)
[2021-02-15 04:46] LABS: Hematocrit 23.2 % (30.3-42.9); Mean Corpuscular HGB Conc 35 % (30-34); Mean Corpuscular Volume 90 fl (79-97); Platelet Count 238 K/mm3 (140-440); Red Blood Count 2.58 M/mm3 (3.65-5.03); Red Cell Distribution Width 14.6 % (13.2-15.2)
[2021-02-15] MEDS: SODIUM CHLORIDE 0.9% 1000 ML 1,000 ML IV SCH ×2 (05:00→14:41)
[2021-02-15] MEDS: LEVOTHYROXINE 100 MCG TAB PO SCH (05:00)
[2021-02-15 05:08] LABS: Calcium 7.8 mg/dL (8.4-10.2)
[2021-02-15] MEDS: oxyCODONE /ACETAMINOPHEN 5-325MG TAB PO PRN ×3 (05:27→19:18)
--- NOTE | 2021-02-15 10:39 | Progress Note ---
Subjective Date of service: 02/15/21 Interval history: Left hip pain after fall this morning History of present illness: 85-year-old female with no significant past medical history had a fall this morning. Patient was apparently attacked by the dog and fell down and landed on her left hip. Painful range of motion of the left hip. EMS was called. There was no movement in the left lower extremity and was extremely painful. Left lower extremity was externally rotated. Patient received fentanyl 100 mg via IV route. In the emergency room patient is in severe pain with pain-pain is scale of 1-10. No significant past medical history. No fever or chills. Patient is a poor historian. 02/14 patient is awake and alert and not in any distress, complains of pain in the left hip from surgery, she denies any fever or chills, denies chest pain or shortness of breath, denies dysuria or frequency. Lab results reviewed. Ortho note reviewed 02/15 patient is awake and alert, not in any distress, eating well, complains of pain in the operated hip, lab results reviewed Assessment and plan/ Displaced left intertrochanteric hip fracture Status post surgery with IM nailing Pain control DVT prophylaxis with Lovenox PT consult Patient did not participate in PT evaluation yesterday as she was feeling nauseous Likely for subacute rehab placement Anemia-normocytic type Hemoglobin/hematocrit dropped to 8/23.2 This is expected from surgery and IV fluids No overt bleeding Monitor H&H Transfuse as needed Hyponatremia Improving Serum sodium unchanged at 129 Monitor electrolytes leukocytosis Resolved Likely reactive Check UA UA ordered but not done yet Chest x-ray reviewed History of trigeminal neuralgia Continue oxcarbazepine and propranolol However propranolol was decreased to 40 mg twice daily secondary to borderline low normal blood pressure History of hypothyroidism Continue Synthroid Glaucoma Continue home eyedrops Hyperglycemia A1c 6.0 Objective - Constitutional Vitals: Vital Signs - 12hr 02/14/21 02/15/21 02/15/21 23:21 04:38 05:27 Temperature 97.6 F 97.5 F L Pulse Rate 68 65 Respiratory 16 18 17 Rate Blood Pressure 117/49 132/57 O2 Sat by Pulse 99 92 Oximetry 02/15/21 02/15/21 06:27 06:57 Temperature 97.7 F Pulse Rate 82 Respiratory 17 18 Rate Blood Pressure 112/48 O2 Sat by Pulse 100 Oximetry General appearance: Present: no acute distress - EENT Eyes: PERRL, EOM intact ENT: hearing intact, clear oral mucosa - Neck Neck: supple, normal ROM - Respiratory Respiratory effort: normal Respiratory: bilateral: CTA - Cardiovascular Rhythm: regular Heart Sounds: Present: S1 & S2 Extremities: No edema - Gastrointestinal General gastrointestinal: Present: soft, non-tender - Integumentary Integumentary: clear - Neurologic Neurologic: no focal deficits - Psychiatric Psychiatric: appropriate mood/affect - Labs CBC & Chem 7: 02/15/21 04:05 02/15/21 04:05 Labs: Abnormal lab results 02/14/21 02/15/21 02/15/21 Range/Units 09:25 04:05 04:05 RBC 2.58 L (3.65-5.03) M/mm3 Hgb 8.0 L (10.1-14.3) gm/dl Hct 23.2 L D (30.3-42.9) % MCHC 35 H (30-34) % Seg Neuts % (Manual) 82.0 H (40.0-70.0) % Seg Neutrophils # Man 13.4 H (1.8-7.7) K/mm3 Lymphocytes # (Manual) 0.0 L (1.2-5.4) K/mm3 Sodium 129 L (137-145) mmol/L Chloride 94.3 L (98-107) mmol/L BUN 21 H (7-17) mg/dL Creatinine 1.4 H D (0.6-1.2) mg/dL Glucose 101 H (65-100) mg/dL Calcium 7.8 L (8.4-10.2) mg/dL
[2021-02-15] MEDS: ENOXAPARIN 40 MG/0.4 ML INJ SUB-Q SCH (11:25)
[2021-02-15] MEDS: OXcarbazepine 150 MG TAB PO SCH ×2 (11:25→21:41)
[2021-02-15] MEDS: TOBRADEX 0.1-0.3% OPHTH OINT 3.5 GM OU SCH (21:42)
[2021-02-15] MEDS: LATANOPROST 0.005% OPHTH SOLN 2.5 ML OU SCH (21:42)
[2021-02-15] MEDS: MORPHINE 4 MG/1 ML INJ IV PRN (22:08)
[2021-02-16 05:13] LABS: Hemoglobin 6.7 gm/dl (10.1-14.3); Mean Corpuscular HGB Conc 34 % (30-34); Mean Corpuscular Volume 89 fl (79-97); Platelet Count 227 K/mm3 (140-440); Red Blood Count 2.21 M/mm3 (3.65-5.03); Red Cell Distribution Width 14.5 % (13.2-15.2)
[2021-02-16 05:30] LABS: Hematocrit 19.8 % (30.3-42.9)
[2021-02-16 05:31] LABS: Calcium 8.3 mg/dL (8.4-10.2)
[2021-02-16] MEDS: oxyCODONE /ACETAMINOPHEN 5-325MG TAB PO PRN (05:39)
[2021-02-16] MEDS: LEVOTHYROXINE 100 MCG TAB PO SCH (05:39)
[2021-02-16] MEDS: ALENDRONATE SODIUM 70 MG TAB PO SCH (05:40)
[2021-02-16] MEDS ORDERED: SODIUM CHLORIDE 0.9% 500 ML 500 ML IV ONE ×2 (08:00→10:00)
[2021-02-16] MEDS: ENOXAPARIN 40 MG/0.4 ML INJ SUB-Q SCH ×2 (08:51→11:34)
[2021-02-16] MEDS: PROPRANOLOL 40 MG TAB PO SCH ×3 (08:51→21:44)
[2021-02-16] MEDS: FAMOTIDINE 20 MG TAB PO SCH ×2 (08:54→11:33)
[2021-02-16] MEDS: OXcarbazepine 150 MG TAB PO SCH ×3 (08:54→21:45)
[2021-02-16] MEDS: ONDANSETRON 4 MG/2 ML INJ IV PRN (10:56)
[2021-02-16] MEDS: MORPHINE 4 MG/1 ML INJ IV PRN ×2 (11:22→21:40)
--- NOTE | 2021-02-16 11:37 | Progress Note ---
Subjective Date of service: 02/16/21 Interval history: Left hip pain after fall this morning History of present illness: 85-year-old female with no significant past medical history had a fall this morning. Patient was apparently attacked by the dog and fell down and landed on her left hip. Painful range of motion of the left hip. EMS was called. There was no movement in the left lower extremity and was extremely painful. Left lower extremity was externally rotated. Patient received fentanyl 100 mg via IV route. In the emergency room patient is in severe pain with pain-pain is scale of 1-10. No significant past medical history. No fever or chills. Patient is a poor historian. 02/14 patient is awake and alert and not in any distress, complains of pain in the left hip from surgery, she denies any fever or chills, denies chest pain or shortness of breath, denies dysuria or frequency. Lab results reviewed. Ortho note reviewed 02/15 patient is awake and alert, not in any distress, eating well, complains of pain in the operated hip, lab results reviewed 02/16 alert, NAD, complains of having had no BM since admission, denies nausea or abdominal pain. Lab results reviewed Assessment and plan/ Displaced left intertrochanteric hip fracture Status post surgery with IM nailing Pain control DVT prophylaxis with Lovenox PT consulted Likely for subacute rehab placement Anemia-normocytic type Hemoglobin dropped to 6.7 this morning No overt bleeding Most likely combination of surgery and IV fluids We will transfuse 1 unit of PRBC Monitor H&H Discontinue IV fluids Check stool for occult blood Hyponatremia Improving Serum sodium 130 this morning Monitor electrolytes leukocytosis Resolved Likely reactive Check UA UA ordered but not done yet Chest x-ray reviewed History of trigeminal neuralgia Continue oxcarbazepine and propranolol However propranolol was decreased to 40 mg twice daily secondary to borderline low normal blood pressure History of hypothyroidism Continue Synthroid Glaucoma Continue home eyedrops Hyperglycemia A1c 6.0 Objective - Constitutional Vitals: Vital Signs - 12hr 02/16/21 02/16/21 02/16/21 05:22 07:30 07:31 Temperature 98.2 F 98.8 F Pulse Rate 89 Respiratory 18 18 Rate Blood Pressure 110/55 105/50 O2 Sat by Pulse 61 L 96 Oximetry 02/16/21 02/16/21 08:51 09:11 Temperature Pulse Rate 89 Respiratory Rate Blood Pressure 105/50 O2 Sat by Pulse 93 Oximetry General appearance: Present: no acute distress - EENT Eyes: PERRL, EOM intact ENT: hearing intact, clear oral mucosa - Neck Neck: supple, normal ROM - Respiratory Respiratory effort: normal Respiratory: bilateral: CTA - Breasts Breasts: deferred - Cardiovascular Rhythm: regular Heart Sounds: Present: S1 & S2 Extremities: No edema - Gastrointestinal General gastrointestinal: Present: soft, non-tender Rectal Exam: deferred - Genitourinary Female genitourinary: deferred - Integumentary Integumentary: clear - Neurologic Neurologic: no focal deficits - Psychiatric Psychiatric: appropriate mood/affect - Labs CBC & Chem 7: 02/16/21 04:05 02/16/21 04:05 Labs: Abnormal lab results 02/13/21 02/16/21 02/16/21 Range/Units 14:37 04:05 04:05 RBC 2.21 L (3.65-5.03) M/mm3 Hgb 6.7 L (10.1-14.3) gm/dl Hct 19.8 L* (30.3-42.9) % Sodium 130 L (137-145) mmol/L Chloride 97.8 L (98-107) mmol/L Calcium 8.3 L (8.4-10.2) mg/dL Crossmatch See Detail 02/16/21 Range/Units 05:51 RBC (3.65-5.03) M/mm3 Hgb (10.1-14.3) gm/dl Hct (30.3-42.9) % Sodium (137-145) mmol/L Chloride (98-107) mmol/L Calcium (8.4-10.2) mg/dL Crossmatch See Detail
[2021-02-16] MEDS: POLYETHYLENE GLYCOL 3350 17 GM POWDER PO SCH (14:08)
[2021-02-16] MEDS: TOBRADEX 0.1-0.3% OPHTH OINT 3.5 GM OU SCH (21:45)
[2021-02-16] MEDS: LATANOPROST 0.005% OPHTH SOLN 2.5 ML OU SCH (21:46)
[2021-02-17] MEDS: oxyCODONE /ACETAMINOPHEN 5-325MG TAB PO PRN ×2 (01:41→21:49)
[2021-02-17] MEDS: LEVOTHYROXINE 100 MCG TAB PO SCH (05:55)
[2021-02-17] MEDS: ALENDRONATE SODIUM 70 MG TAB PO SCH (05:59)
[2021-02-17 08:11] LABS: Hematocrit 32.4 % (30.3-42.9); Hemoglobin 11.6 gm/dl (10.1-14.3); Mean Corpuscular HGB Conc 36 % (30-34); Mean Corpuscular Volume 89 fl (79-97); Platelet Count 232 K/mm3 (140-440); Red Blood Count 3.66 M/mm3 (3.65-5.03)
[2021-02-17 08:38] LABS: Blood Urea Nitrogen 13 mg/dL (7-17); Calcium 8.7 mg/dL (8.4-10.2); Hemolysis Index 3
[2021-02-17 08:56] LABS: BUN/Creatinine Ratio 19
[2021-02-17] MEDS: PROPRANOLOL 40 MG TAB PO SCH ×2 (09:21→21:48)
[2021-02-17] MEDS: OXcarbazepine 150 MG TAB PO SCH ×2 (09:22→21:47)
[2021-02-17] MEDS: ENOXAPARIN 40 MG/0.4 ML INJ SUB-Q SCH (09:22)
[2021-02-17] MEDS: FAMOTIDINE 20 MG TAB PO SCH (09:22)
[2021-02-17] MEDS: MORPHINE 4 MG/1 ML INJ IV PRN (09:33)
--- NOTE | 2021-02-17 12:49 | Progress Note ---
Subjective Date of service: 02/17/21 Interval history: Left hip pain after fall this morning History of present illness: 85-year-old female with no significant past medical history had a fall this morning. Patient was apparently attacked by the dog and fell down and landed on her left hip. Painful range of motion of the left hip. EMS was called. There was no movement in the left lower extremity and was extremely painful. Left lower extremity was externally rotated. Patient received fentanyl 100 mg via IV route. In the emergency room patient is in severe pain with pain-pain is scale of 1-10. No significant past medical history. No fever or chills. Patient is a poor historian. 02/14 patient is awake and alert and not in any distress, complains of pain in the left hip from surgery, she denies any fever or chills, denies chest pain or shortness of breath, denies dysuria or frequency. Lab results reviewed. Ortho note reviewed 02/15 patient is awake and alert, not in any distress, eating well, complains of pain in the operated hip, lab results reviewed 02/16 alert, NAD, complains of having had no BM since admission, denies nausea or abdominal pain. Lab results reviewed 02/17 doing well,. No specific complaints except pain in the left hip. States she had a bowel movement this morning. Lab results reviewed Waiting for subacute rehab placement Assessment and plan/ Displaced left intertrochanteric hip fracture Status post surgery with IM nailing Pain control DVT prophylaxis with Lovenox PT consulted Likely for subacute rehab placement Anemia-normocytic type Hemoglobin dropped to 6.7 this morning No overt bleeding Most likely combination of surgery and IV fluids We will transfuse 1 unit of PRBC Monitor H&H Discontinue IV fluids Check stool for occult blood Hyponatremia Improving Serum sodium 130 this morning Monitor electrolytes leukocytosis Resolved Likely reactive Check UA UA ordered but not done yet Chest x-ray reviewed History of trigeminal neuralgia Continue oxcarbazepine and propranolol Increase propranolol to 60 mg twice daily as the blood pressure is borderline elevated although patient states that she does not have hypertension History of hypothyroidism Continue Synthroid Glaucoma Continue home eyedrops Hyperglycemia A1c 6.0 Objective - Constitutional Vitals: Vital Signs - 12hr 02/17/21 02/17/21 02/17/21 05:29 07:31 10:00 Temperature 97.9 F 97.4 F L 98.2 F Pulse Rate 89 80 68 Respiratory 18 18 18 Rate Blood Pressure 170/82 186/92 Blood Pressure 146/72 [Left] O2 Sat by Pulse 94 96 2 L Oximetry 02/17/21 02/17/21 11:05 12:00 Temperature 98.1 F 98 F Pulse Rate 68 68 Respiratory 18 18 Rate Blood Pressure 151/69 Blood Pressure 146/72 [Left] O2 Sat by Pulse 95 96 Oximetry General appearance: Present: no acute distress, well-nourished - EENT Eyes: PERRL, EOM intact ENT: hearing intact, clear oral mucosa - Neck Neck: supple, normal ROM, no masses or JVD - Respiratory Respiratory effort: normal Respiratory: bilateral: CTA - Breasts Breasts: deferred - Cardiovascular Rhythm: regular Heart Sounds: Present: S1 & S2 Extremities: No edema - Gastrointestinal General gastrointestinal: Present: soft, non-tender Rectal Exam: deferred - Integumentary Integumentary: clear - Neurologic Neurologic: no focal deficits - Psychiatric Psychiatric: appropriate mood/affect - Labs CBC & Chem 7: 02/17/21 07:37 02/17/21 07:37 Labs: Abnormal lab results 02/13/21 02/16/21 02/17/21 Range/Units 14:37 05:51 07:37 MCHC 36 H (30-34) % Sodium (137-145) mmol/L Chloride (98-107) mmol/L Glucose (65-100) mg/dL Crossmatch See Detail See Detail 02/17/21 Range/Units 07:37 MCHC (30-34) % Sodium 130 L (137-145) mmol/L Chloride 95.9 L (98-107) mmol/L Glucose 105 H (65-100) mg/dL Crossmatch
[2021-02-17] MEDS: POLYETHYLENE GLYCOL 3350 17 GM POWDER PO SCH (15:36)
[2021-02-17] MEDS: TOBRADEX 0.1-0.3% OPHTH OINT 3.5 GM OU SCH (21:49)
[2021-02-17] MEDS: LATANOPROST 0.005% OPHTH SOLN 2.5 ML OU SCH (21:50)
[2021-02-18] MEDS: LEVOTHYROXINE 100 MCG TAB PO SCH (05:37)
[2021-02-18] MEDS: POLYETHYLENE GLYCOL 3350 17 GM POWDER PO SCH (09:54)
[2021-02-18] MEDS: ENOXAPARIN 40 MG/0.4 ML INJ SUB-Q SCH (09:54)
[2021-02-18] MEDS: PROPRANOLOL 40 MG TAB PO SCH ×2 (09:55→21:42)
[2021-02-18] MEDS: OXcarbazepine 150 MG TAB PO SCH ×2 (09:55→21:41)
[2021-02-18] MEDS: FAMOTIDINE 20 MG TAB PO SCH (09:55)
[2021-02-18] MEDS: oxyCODONE /ACETAMINOPHEN 5-325MG TAB PO PRN (21:41)
[2021-02-18] MEDS: LATANOPROST 0.005% OPHTH SOLN 2.5 ML OU SCH (21:42)
[2021-02-18] MEDS: TOBRADEX 0.1-0.3% OPHTH OINT 3.5 GM OU SCH (21:43)
[2021-02-19] MEDS: LEVOTHYROXINE 100 MCG TAB PO SCH (05:15)
[2021-02-19] MEDS: oxyCODONE /ACETAMINOPHEN 5-325MG TAB PO PRN (05:15)
--- NOTE | 2021-02-19 08:21 | Progress Note ---
Assessment and Plan - Patient Problems (1) Closed intertrochanteric fracture of left femur Current Visit: Yes Status: Acute Plan to address problem: S/p ORIF Patient doing well (2) Hyponatremia Current Visit: Yes Status: Acute Plan to address problem: Corrected (3) DVT prophylaxis Current Visit: Yes Status: Acute Plan to address problem: On heparin and GI prophylaxis Subjective Date of service: 02/18/21 Principal diagnosis: Left hip fracture Interval history: History of present illness: 85-year-old female with no significant past medical history had a fall this morning. Patient was apparently attacked by the dog and fell down and landed on her left hip. Painful range of motion of the left hip. EMS was called. There was no movement in the left lower extremity and was extremely painful. Left lower extremity was externally rotated. Patient received fentanyl 100 mg via IV route. In the emergency room patient is in severe pain with pain-pain is scale of 1-10. No significant past medical history. No fever or chills. Patient is a poor historian. 02/14 patient is awake and alert and not in any distress, complains of pain in the left hip from surgery, she denies any fever or chills, denies chest pain or shortness of breath, denies dysuria or frequency. Lab results reviewed. Ortho note reviewed 02/15 patient is awake and alert, not in any distress, eating well, complains of pain in the operated hip, lab results reviewed 02/16 alert, NAD, complains of having had no BM since admission, denies nausea or abdominal pain. Lab results reviewed 02/17 doing well,. No specific complaints except pain in the left hip. States she had a bowel movement this morning. Lab results reviewed Waiting for subacute rehab placement 02/18/2021 Patient doing well patient waiting for placement Objective - Constitutional Vitals: Vital Signs - 12hr 02/18/21 02/18/21 02/18/21 21:41 21:42 22:41 Temperature Pulse Rate 76 Respiratory 17 17 Rate Blood Pressure 153/67 O2 Sat by Pulse Oximetry 02/18/21 02/19/21 02/19/21 23:12 04:54 05:15 Temperature 98.2 F 98.5 F Pulse Rate 63 62 Respiratory 18 18 17 Rate Blood Pressure 157/62 167/63 O2 Sat by Pulse 97 99 Oximetry 02/19/21 06:15 Temperature Pulse Rate Respiratory 17 Rate Blood Pressure O2 Sat by Pulse Oximetry General appearance: Present: no acute distress, well-nourished - EENT Eyes: PERRL, EOM intact ENT: hearing intact, clear oral mucosa Ears: bilateral: normal - Neck Neck: supple, normal ROM - Respiratory Respiratory effort: normal Respiratory: bilateral: CTA - Breasts Breasts: normal - Cardiovascular Rhythm: regular Heart Sounds: Present: S1 & S2. Absent: gallop, rub Extremities: pulses intact, No edema, normal color, Full ROM - Gastrointestinal General gastrointestinal: Present: soft, non-tender, non-distended, normal bowel sounds - Genitourinary Female genitourinary: normal - Integumentary Integumentary: clear, warm, dry - Musculoskeletal Musculoskeletal: 1, strength equal bilaterally - Neurologic Neurologic: moves all extremities - Psychiatric Psychiatric: memory intact, appropriate mood/affect, intact judgment & insight - Labs CBC & Chem 7: 02/17/21 07:37 02/17/21 07:37
[2021-02-19] MEDS: FAMOTIDINE 20 MG TAB PO SCH (10:57)
[2021-02-19] MEDS: PROPRANOLOL 40 MG TAB PO SCH (10:57)
[2021-02-19] MEDS: ENOXAPARIN 40 MG/0.4 ML INJ SUB-Q SCH (10:57)
[2021-02-19] MEDS: OXcarbazepine 150 MG TAB PO SCH (10:58)
[2021-02-19] MEDS: POLYETHYLENE GLYCOL 3350 17 GM POWDER PO SCH (11:01)
--- NOTE | 2021-02-19 14:58 | Discharge Summary ---
Providers - Providers Date of Admission: 02/13/21 19:05 Date of discharge: 02/19/21 Attending physician: LEVI ROTH 02/13/21 21:21 Consult to Physician [CONS] Routine Comment: Consulting Provider: RODGER BOCANEGRA Physician Instructions: Reason For Exam: L Hip Fx 02/14/21 07:31 Physical Therapy Evaluation and Treat [CONS] Routine Comment: Reason For Exam: Postop evaluation Weight bearing status?: Partial wt bearing Assistive devices?: Yes If so list: Walker 02/14/21 11:02 Occupational Therapy Evaluate and Treat [CONS] Routine Comment: Reason For Exam: s/p hip/femur fx repair d/t fall at home 02/18/21 14:58 Consult Acute Rehabilitation [CONS] Routine Consulting Provider: Physician Instructions: Reason For Exam: IRU Evaluation Primary care physician: HARNESS INSTALLER Hospitalization Condition: Stable Hospital course: Left hip pain after fall this morning History of present illness: 85-year-old female with no significant past medical history had a fall this morning. Patient was apparently attacked by the dog and fell down and landed on her left hip. Painful range of motion of the left hip. EMS was called. There was no movement in the left lower extremity and was extremely painful. Left lower extremity was externally rotated. Patient received fentanyl 100 mg via IV route. In the emergency room patient is in severe pain with pain-pain is scale of 1-10. No significant past medical history. No fever or chills. Patient is a poor historian. 02/14 patient is awake and alert and not in any distress, complains of pain in the left hip from surgery, she denies any fever or chills, denies chest pain or shortness of breath, denies dysuria or frequency. Lab results reviewed. Ortho note reviewed 02/15 patient is awake and alert, not in any distress, eating well, complains of pain in the operated hip, lab results reviewed 02/16 alert, NAD, complains of having had no BM since admission, denies nausea or abdominal pain. Lab results reviewed 02/17 doing well,. No specific complaints except pain in the left hip. States she had a bowel movement this morning. Lab results reviewed Waiting for subacute rehab placement 02/18/2021 Patient waiting for placement 02/19/2021 Patient going to longterm facility/IRU Assessment and plan/ Displaced left intertrochanteric hip fracture Status post surgery with IM nailing Pain control DVT prophylaxis with Lovenox PT consulted Likely for subacute rehab placement Anemia-normocytic type Hemoglobin dropped to 6.7 this morning No overt bleeding Most likely combination of surgery and IV fluids We will transfuse 1 unit of PRBC Monitor H&H Discontinue IV fluids Check stool for occult blood Hyponatremia Improving Serum sodium 130 this morning Monitor electrolytes leukocytosis Resolved Likely reactive Check UA UA ordered but not done yet Chest x-ray reviewed History of trigeminal neuralgia Continue oxcarbazepine and propranolol Increase propranolol to 60 mg twice daily as the blood pressure is borderline elevated although patient states that she does not have hypertension History of hypothyroidism Continue Synthroid Glaucoma Continue home eyedrops Hyperglycemia A1c 6.0 Disposition: DC/[place]-03 [facility] CERT Final Discharge Diagnosis (Prints w/discharge instructions): Left intertrochanteric fracture. Hyponatremia. Debility. Anemia Time spent for discharge: 35 minutes - Discharge Diagnoses (1) Hyponatremia Status: Acute (2) Closed intertrochanteric fracture of left femur Status: Acute (3) DVT prophylaxis Status: Acute Core Measure Documentation - Palliative Care Palliative Care/ Comfort Measures: Not Applicable - Core Measures Any of the following diagnoses?: none Exam - Constitutional Vitals: Temp Pulse Resp BP Pulse Ox 97.7 F 65 20 168/72 99 02/19/21 12:42 02/19/21 12:42 02/19/21 12:42 02/19/21 12:42 02/19/21 04:54 General appearance: Present: no acute distress, well-nourished - EENT Eyes: Present: PERRL ENT: hearing intact, clear oral mucosa - Neck Neck: Present: supple, normal ROM - Respiratory Respiratory effort: normal Respiratory: bilateral: CTA - Cardiovascular Heart rate: 76 Rhythm: regular Heart Sounds: Present: S1 & S2. Absent: rub, click - Extremities Extremities: no ischemia, pulses symmetrical, No edema, abnormal (Decreased range of motion of the left hip) Peripheral Pulses: within normal limits - Abdominal General gastrointestinal: Present: soft, non-tender, non-distended, normal bowel sounds Female genitourinary: Present: normal - Integumentary Integumentary: Present: clear, warm, dry - Musculoskeletal Musculoskeletal: gait normal, strength equal bilaterally - Psychiatric Psychiatric: appropriate mood/affect, intact judgment & insight - Neurologic Neurologic: CNII-XII intact, moves all extremities Plan Activity: no restrictions Weight Bearing Status: Weight Bear as Tolerated Diet: regular Durable Medical Equipment Needed Upon Discharge: Walker-Standard Follow up with: PRIMARY CAREMD [Primary Care Provider] - 3-5 Days RODGER BOCANEGRA MD [Staff Physician] - 7 Days
[2021-02-19 16:52] VITALS: BP 136/81
== END 2021-02-19 17:48 | DRG 481 ==
LOC: ED 13:50 → 3A 19:05 → 3B-SURG 21:22
PROVIDERS: ADMIT Internal Medicine; ATTEND Internal Medicine
PROC: 0QSC36Z Reposition Left Lower Femur with Intramedullary Internal Fixation Device, Percutaneous Approach (ICD-10-PCS; principal; 2021-02-14)
PROC: 0QS736Z Reposition Left Upper Femur with Intramedullary Internal Fixation Device, Percutaneous Approach (ICD-10-PCS; 2021-02-14)
PROC: 30233N1 Transfusion of Nonautologous Red Blood Cells into Peripheral Vein, Percutaneous Approach (ICD-10-PCS; 2021-02-16)
DX: S72.142A Displaced intertrochanteric fracture of left femur, initial encounter for closed fracture (principal); E87.1 Hypo-osmolality and hyponatremia; D64.9 Anemia, unspecified; W18.31XA Fall on same level due to stepping on an object, initial encounter; D72.829 Elevated white blood cell count, unspecified; G50.0 Trigeminal neuralgia; E03.9 Hypothyroidism, unspecified; H40.9 Unspecified glaucoma; R73.9 Hyperglycemia, unspecified; Z88.0 Allergy status to penicillin; Z88.2 Allergy status to sulfonamides; Z79.899 Other long term (current) drug therapy; Z79.891 Long term (current) use of opiate analgesic; Z79.01 Long term (current) use of anticoagulants; Z90.710 Acquired absence of both cervix and uterus; Y93.89 Activity, other specified; Y92.89 Other specified places as the place of occurrence of the external cause; Y99.8 Other external cause status; Z82.49 Family history of ischemic heart disease and other diseases of the circulatory system
CPT/HCPCS: 36415; 71045; 72170; 80048; 80053; 83036; 85007; 85025; 85027; 85610; 85730; 86850; 86870; 86900; 86901; 86922; 96361; 96374; 96375; 96376; G0378; C1713; C1769; J1170; J1650; J1885; J2270; J2370; J2405; J2704; J3010; J3370; J7030; J7040; J7050; J7120; P9016

== ENCOUNTER 2021-02-19 12:22 | Inpatient (IN) | payer MEDICARE ==
[2021-02-19] MEDS ORDERED: ACETAMINOPHEN 325 MG TAB PO PRN (16:11)
[2021-02-19] MEDS ORDERED: POLYETHYLENE GLYCOL 3350 17 GM POWDER PO PRN (16:27)
[2021-02-19] MEDS ORDERED: hydrALAZINE 20 MG/1 ML INJ IV PRN (16:27)
[2021-02-19] MEDS ORDERED: ONDANSETRON 4 MG/2 ML INJ IV PRN (16:28)
[2021-02-19] MEDS ORDERED: OXYMETAZOLINE HCL OU SCH (22:00)
[2021-02-19] MEDS: TOBRADEX 0.1-0.3% OPHTH OINT 3.5 GM OU SCH (22:01)
[2021-02-19] MEDS: PROPRANOLOL 40 MG TAB PO SCH (22:02)
[2021-02-19] MEDS: OXcarbazepine 300 MG TAB PO SCH (22:05)
[2021-02-19] MEDS: LATANOPROST 0.005% OPHTH SOLN 2.5 ML OU SCH (22:13)
[2021-02-20] MEDS: LEVOTHYROXINE 100 MCG TAB PO SCH (05:45)
[2021-02-20] MEDS: oxyCODONE /ACETAMINOPHEN 5-325MG TAB PO PRN ×3 (05:45→21:35)
[2021-02-20 07:22] LABS: Basophils % (Auto) 0.3 % (0.0-1.8); Eosinophils # (Auto) 0.2 K/mm3 (0.0-0.4); Eosinophils % (Auto) 2.6 % (0.0-4.3); Hematocrit 30.2 % (30.3-42.9); Hemoglobin 10.7 gm/dl (10.1-14.3); Lymphocytes # (Auto) 1.2 K/mm3 (1.2-5.4); Lymphocytes % (Auto) 15.3 % (13.4-35.0); Mean Corpuscular HGB Conc 36 % (30-34); Mean Corpuscular Volume 90 fl (79-97); Monocytes # (Auto) 0.8 K/mm3 (0.0-0.8); Monocytes % (Auto) 10.7 % (0.0-7.3); Platelet Count 333 K/mm3 (140-440); Red Blood Count 3.36 M/mm3 (3.65-5.03); Red Cell Distribution Width 14.8 % (13.2-15.2)
[2021-02-20 07:40] LABS: Alanine Aminotransferase 32 units/L (7-56); Albumin 2.9 g/dL (3.9-5); Blood Urea Nitrogen 12 mg/dL (7-17); Calcium 8.6 mg/dL (8.4-10.2); Hemolysis Index 30
[2021-02-20 07:45] LABS: BUN/Creatinine Ratio 20
[2021-02-20] MEDS: ENOXAPARIN 40 MG/0.4 ML INJ SUB-Q SCH (09:03)
[2021-02-20] MEDS: PROPRANOLOL 40 MG TAB PO SCH ×2 (09:03→21:34)
[2021-02-20] MEDS: FAMOTIDINE 20 MG TAB PO SCH (09:03)
[2021-02-20] MEDS: OXcarbazepine 300 MG TAB PO SCH ×2 (09:05→21:33)
--- NOTE | 2021-02-20 09:33 | History and Physical Report ---
History of Present Illness Date: 02/20/21 Date of admission: 02/19/21 16:11 Chief Complaint: Left hip fracture History of present illness: 85-year-old female who experienced a fall on February 13, 2021 after being knocked over by her dog and landing on her left hip with pain. Patient was taken to the ED by EMS who noted that there is extreme pain with any movement of the left lower extremity which was externally rotated. X-ray of the pelvis showed a displaced intertrochanteric fracture of the proximal left femur. Orthopedics was consulted and the patient went to the OR on February 14, 2021 where she had a intramedullary nail placed for left femur repair by Dr. Loza. Patient tolerated the procedure well and had routine healing afterwards, was noted to have hyponatremia as well as postoperative anemia and hypertension. She was transfused a total of 2 units PRBCs. All records from this admission and including previous hospital records have been reviewed. After the patient was medically stabilized they were transferred for further rehabilitation. All available medical records have been reviewed. Plan of care was discussed with patient. In total, 31 minutes was invested in reviewing patient's current and previous medical records on 02/19/2021 in order to prepare for the patient's admission and evaluation today. Past History Past Medical History: anemia, hypertension, hypothyroidism, other (Trigeminal neuralgia, glaucoma) Past Surgical History: hysterectomy, Other (Appendectomy at time of hysterectomy, back surgery with fusion, knee arthroscopy) Social history: Lives alone (Sons lives next door). denies: smoking, alcohol abuse Family history: hypertension Medications and Allergies Allergies Allergy/AdvReac Type Severity Reaction Status Date / Time Penicillins Allergy Unknown Verified 02/13/21 14:16 Sulfa (Sulfonamide Allergy Unknown Verified 02/13/21 14:16 Antibiotics) Home Medications Medication Instructions Recorded Confirmed Last Taken Type Levothyroxine Sodium 100 mcg PO QDAY 02/13/21 02/13/21 Unknown History [Levothyroxine] OXcarbazepine [Oxtellar XR] 150 mg PO BID 02/13/21 02/13/21 Unknown History Oxymetazoline HCl/Pf [Upneeq 0.1% 1 drop OU BID 02/13/21 02/13/21 Unknown History Eye Drop] Propranolol HCl 60 mg PO BID 02/13/21 02/13/21 Unknown History Tobramycin/Dexameth 0.1-0.3% 1 applic OU QHS 02/13/21 02/13/21 Unknown History [Tobradex] Acetaminophen [Acetaminophen TAB] 650 mg PO Q4H PRN #30 tablet 02/19/21 Unknown Rx Alendronate Sodium [Fosamax] 70 mg PO Rain tablet 02/19/21 Unknown Rx Famotidine [Pepcid] 20 mg PO DAILY tablet 02/19/21 Unknown Rx Latanoprost 0.005% 1 drops OU QHS bottle 02/19/21 Unknown Rx oxyCODONE /ACETAMINOPHEN [Percocet 1 tab PO Q4HR #15 tab 02/19/21 Unknown Rx 5/325] Active Meds: Active Medications Acetaminophen (Acetaminophen 325 Mg Tab) 650 mg PO Q4H PRN PRN Reason: Pain MILD(1-3)/Fever >100.5/COLLINS Last Admin: 02/19/21 22:05 Dose: 650 mg Documented by: Bisacodyl (Bisacodyl 10 Mg Rect Supp) 10 mg TN QDAY PRN PRN Reason: Constipation Enoxaparin Sodium (Enoxaparin 40 Mg/0.4 Ml Inj) 40 mg SUB-Q QDAY [facility] Last Admin: 02/20/21 09:03 Dose: 40 mg Documented by: Famotidine (Famotidine 20 Mg Tab) 20 mg PO QDAY [facility] Last Admin: 02/20/21 09:03 Dose: 20 mg Documented by: Hydralazine HCl (Hydralazine 20 Mg/1 Ml Inj) 10 mg IV Q4HR PRN PRN Reason: Hypertension Latanoprost (Latanoprost 0.005% Ophth Soln 2.5 Ml) 1 drops OU QPM [facility] Last Admin: 02/19/21 22:13 Dose: 1 drops Documented by: Levothyroxine Sodium (Levothyroxine 100 Mcg Tab) 100 mcg PO DAILY@0600 [facility] Last Admin: 02/20/21 05:45 Dose: 100 mcg Documented by: Miscellaneous Medication (Oxymetazoline Hcl/Pf [Upneeq 0.1% Eye Drop]) 1 drop OU BID [facility] Ondansetron HCl (Ondansetron 4 Mg/2 Ml Inj) 4 mg IV Q8H PRN PRN Reason: Nausea And Vomiting Oxcarbazepine (Oxcarbazepine 300 Mg Tab) 150 mg PO BID [facility] Last Admin: 02/20/21 09:05 Dose: 150 mg Documented by: Oxycodone/Acetaminophen (Oxycodone /Acetaminophen 5-325mg Tab) 1 tab PO Q6H PRN PRN Reason: Pain, Moderate (4-6) Last Admin: 02/20/21 05:45 Dose: 1 tab Documented by: Polyethylene Glycol (Polyethylene Glycol 3350 17 Gm Powder) 17 gm PO QDAY PRN PRN Reason: Constipation Propranolol HCl (Propranolol 40 Mg Tab) 60 mg PO Q12HR [facility] Last Admin: 02/20/21 09:03 Dose: 60 mg Documented by: Tobramycin/Dexamethasone (Tobradex 0.1-0.3% Ophth Oint 3.5 Gm) 0.5 inch OU QHS [facility] Last Admin: 02/19/21 22:01 Dose: 0.5 inch Documented by: Review of Systems All systems: negative (ROS negative for 10 systems except as noted below with pertinent positives and negatives.) Eyes: left: blurred vision Ears, nose, mouth and throat: no decreased hearing, no dysphagia Cardiovascular: no chest pain, no rapid/irregular heart beat, no edema Respiratory: no cough, no shortness of breath Gastrointestinal: no abdominal pain, no nausea, no vomiting, no diarrhea, no constipation Menstruation: post hysterectomy Musculoskeletal: limitation of motion, gait dysfunction, fractures Integumentary: wounds (Surgical left hip), no rash, no redness Neurological: no weakness, no tremors Psychiatric: no anxiety, no memory loss Exam - Exam Narrative exam: MUSCULOSKELETAL SPECIALTY EXAM CONSTITUTIONAL: Well developed, well nourished, appropriately groomed LYMPHATIC: No appreciable abnormalities palpable in neck RESPIRATORY: Clear to auscultation bilaterally, no increased work of breathing CARDIOVASCULAR: Regular Rate/ Rhythm, no swelling, edema or tenderness in BUE or BLE. Pulses palpable in all extremities. All extremities warm. GI: + bowel sounds, soft, NTTP, nondistended. INTEGUMENTARY: Surgical site at left hip, otherwise normal, no lesion, rash, masses or bruising noted in extremities. MUSCULOSKELETAL: BUE and BLE normal without defect, crepitus, subluxation, effusion, arthritic ch anges or TTP. BUE 4+/5, good ROM, with normal tone. RLE 4+/5 good ROM, with normal tone, LLE with fair range of motion and 3/5 secondary to pain, normal tone NEURO: CN 2-12 grossly intact. Sensation intact in all extremities. Reflexes 2+ bilaterally at biceps, brachioradialis and patella. No clonus at ankles. Coordination intact in BUE. No tremor noted in 4 extremities. POSTURE and GAIT: Sitting posture good. Balance and gait deferred until seen with therapy. PSYCH: Alert, oriented x3, affect appears normal. Insight appears intact. - Constitutional Vitals: Vital Signs - 12hr 02/20/21 02/20/21 02/20/21 00:00 05:38 08:08 Temperature 98.5 F 97.7 F 97.4 F L Pulse Rate 57 L 57 L 61 Respiratory 18 16 18 Rate Blood Pressure 149/55 147/66 Blood Pressure 153/75 [Right] O2 Sat by Pulse 95 96 97 Oximetry - Labs CBC & Chem 7: 02/20/21 06:49 02/20/21 06:49 Labs: Laboratory Results - last 72 hr 02/20/21 02/20/21 06:49 06:49 WBC 7.8 RBC 3.36 L Hgb 10.7 Hct 30.2 L MCV 90 MCH 32 MCHC 36 H RDW 14.8 Plt Count 333 Lymph % (Auto) 15.3 [place] % (Auto) 10.7 H Eos % (Auto) 2.6 Baso % (Auto) 0.3 Lymph # (Auto) 1.2 [place] # (Auto) 0.8 Eos # (Auto) 0.2 Baso # (Auto) 0.0 Seg Neutrophils % 71.1 H Seg Neutrophils # 5.6 Sodium 134 L Potassium 3.7 Chloride 94.6 L Carbon Dioxide 29 Anion Gap 14 BUN 12 Creatinine 0.6 Estimated GFR > 60 BUN/Creatinine Ratio 20 Glucose 90 Calcium 8.6 Total Bilirubin 0.80 AST 32 ALT 32 Alkaline Phosphatase 121 Total Protein 5.6 L Albumin 2.9 L Albumin/Globulin Ratio 1.1 Assessment and Plan Assessment and plan: Patient was assessed and evaluated for Acute Inpatient Rehab Unit. Due to the patients above-mentioned medical complexity, along with decreased functional mobility and self care, this patient continues to require and be appropriate for a comprehensive, multidisciplinary [id number] rehabilitation program. These needs cannot be met in an outpatient or other less intensive setting. The patient would continue to benefit from skilled therapy intervention for at least 3 hours per day, five days a week, with techniques specific to the needs of the patient to improve function, activities of daily living, and reintegration into the community. The patient continues to require: -- OT to improve ROM, self-care, and learn use of adaptive equipment -- PT to improve strength and balance, functional transfers, and ambulation with energy conservation techniques to improve functional mobility -- GATE SERVICES SUPERVISOR to eval for cognitive deficits but likely will not pick the patient up -- 24 hour RN to ensure and prevent skin breakdown, promote progressive independence while ensuring safety, ensure education regarding medications, and incorporation of the rehabilitation at the bedside -- 24 hour Layboy Operator to coordinate this interdisciplinary program, and to manage/prevent complications as a result of the patients medical comorbidities. -Plan of care by day 4 -Weekly team conferences With such a program, there is a reasonable certainty that the goals individualized for this patient can be achieved within the specified length of stay. Left hip fracture status post IM nail: Continue partial weightbearing status, monitor incision site for any signs of infection or dehiscence. Pain control as needed with goal of weaning down pain medications discussed with patient. DVT prophylaxis for the least 28 to 35 days. Anemia: Postoperative in nature which has normalized now after receiving 2 units of PRBCs on the acute care side. We will continue to monitor CBC every few days and transfuse if needed for hemoglobin less than 7 Glaucoma: Discuss patient's medications, she is no longer taking some of the medications that were listed on the admission orders and we will discontinue those. Continue to monitor for any worsening vision. Patient does note that she has poor vision out of the left eye which is slightly matted. Trigeminal neuralgia on the left: Continue medications, monitor for any worsen ing issues ADL dysfunction: OT will work on improving ability to perform ADLs (including assistive devices) to increase independence and decrease caregiver burden and improve functional transfers and mobility training. Difficulty walking: PT will work on gait training and proper use of assistive d evices and advance as appropriate to use of stairs and outside ambulation on uneven surfaces. Unsteadiness on feet: PT will work on improving static and dynamic sitting and standing balance as well as proper use of assistive devices to decrease risk of falls. Abnormality of gait: PT will work to improve safety and efficiency of gait through neuromotor training and gait training along with instruction on proper use of assistive devices. Muscle weakness: PT & OT will work on strengthening exercises to improve functional strength including mixture of closed and open kinetic chain exercises. Debility: PT & OT will work on improving overall functional status to improve participation with ADLs, mobility and social involvement. Fatigue: PT & OT will work on improving endurance through aerobic exercises and therapeutic activity while monitoring patients tolerance for activity and vital signs as needed. DVT ppx: Lovenox, will need to consider transition to oral agent prior to discharge so the patient receives a total of 28-35 days of DVT prophylaxis Pain: Continue physical modalities in therapy and pain medications as needed to achieve functional pain control. Sleep: Monitor and address as needed. Bowel: Monitor and address as needed. Appetite: Monitor and address as needed. Discharge planning: Pending therapy progress and care plan meeting. Will continue discussion with therapy team, SW, patient and family. Restrictions/ Precautions: Falls WB status: Partial weightbearing left lower extremity Functional Hx: ADLs: Independent Cognition: Independent Mobility: No AD Barriers to Discharge: Decreased mobility and ability to perform self care, balance deficits, weakness Estimated Length of Stay: 1014 days Discharge Destination: Home with family POST ADMISSION PHYSICIAN EVALUATION I have examined the patient and find that functional status, medical condition and appropriateness for IRF admission are essentially unchanged from those described in the preadmission screening. Will monitor for worsening pain, postoperative anemia, wound infection/dehiscence, DVT/PE, bowel and bladder complications and complications due to hypertension, and electrolyte abnorma lities. Will attempt to avoid occurrence of these issues or treat them if they present themselves.
[2021-02-20] MEDS: LATANOPROST 0.005% OPHTH SOLN 2.5 ML OU SCH (19:32)
[2021-02-20] MEDS: TOBRADEX 0.1-0.3% OPHTH OINT 3.5 GM OU SCH (22:18)
[2021-02-21] MEDS: LEVOTHYROXINE 100 MCG TAB PO SCH (06:07)
[2021-02-21] MEDS: FAMOTIDINE 20 MG TAB PO SCH (08:29)
[2021-02-21] MEDS: OXcarbazepine 300 MG TAB PO SCH ×2 (08:29→21:53)
[2021-02-21] MEDS: ENOXAPARIN 40 MG/0.4 ML INJ SUB-Q SCH (08:30)
--- NOTE | 2021-02-21 08:55 | Progress Note ---
Subjective Date of service: 02/21/21 Principal diagnosis: Left Hip Fracture Interval history: 85-year-old female who experienced a fall on February 13, 2021 after being knocked over by her dog and landing on her left hip with pain. Patient was taken to the ED by EMS who noted that there is extreme pain with any movement of the left lower extremity which was externally rotated. X-ray of the pelvis showed a displaced intertrochanteric fracture of the proximal left femur. Orthopedics was consulted and the patient went to the OR on February 14, 2021 where she had a intramedullary nail placed for left femur repair by Dr. Loza. Patient tolerated the procedure well and had routine healing afterwards, was noted to have hyponatremia as well as postoperative anemia and hypertension. She was transfused a total of 2 units PRBCs. Interval History: Patient is participating in therapy and making reasonable progress. Taking rest breaks as needed. +BM. Denies palpitations, dyspnea, cough, N/V. Left hip fracture status post IM nail: Continue partial weightbearing, incision not infected or dehisced, pain control as needed, DVT prophylaxis, partial weightbearing. Anemia: Postoperative, improved after transfusion of 2 units PRBC. Currently stable, monitor Hypertension: Patient denies this diagnosis previously however she is frequently elevated. Hospitalist increase propranolol on acute care side, heart rate is bradycardic frequently, will decrease propranolol to 40 mg twice daily and start lisinopril for better blood pressure control, monitor hypertension and bradycardia for improvement. Pain: Fairly controlled currently on oral medications ADL dysfunction: Continue to work with occupational therapy to improve ability to perform self-care as patient lives alone Mobility dysfunction: Continue to work with physical therapy to improve patient's ability to ambulate with assistive device while maintaining weightbearing restriction, may need to discharge home at wheelchair level if weightbearing does not advance All records, vitals, labs and medications were reviewed. No other issues per patient, nursing or therapy. Objective - Exam Narrative Exam: MUSCULOSKELETAL SPECIALTY EXAM CONSTITUTIONAL: Well developed, well nourished, appropriately groomed RESPIRATORY: Clear to auscultation bilaterally, no increased work of breathing CARDIOVASCULAR: Regular Rate/ Rhythm, no swelling, edema or tenderness in BUE or BLE. All extremities warm. GI: + bowel sounds, soft, NTTP, nondistended. INTEGUMENTARY: Surgical site at left hip, otherwise normal, no lesion, rash, masses or bruising noted in extremities. MUSCULOSKELETAL: BUE and BLE normal without defect, crepitus, subluxation, effusion, arthritic changes or TTP. BUE 4+/5, good ROM, with normal tone. RLE 4+/5 good ROM, with normal tone, LLE with fair range of motion and 3/5 secondary to pain, normal tone NEURO: CN 2-12 grossly intact. Sensation intact in all extremities. Coordination intact in BUE. No tremor noted in 4 extremities. POSTURE and GAIT: Sitting posture good. PSYCH: Alert, oriented x3, affect appears normal. Insight appears intact. - Constitutional Vitals: Vital Signs - 12hr 02/21/21 02/21/21 05:14 07:56 Temperature 97.8 F 98.2 F Pulse Rate 57 L 59 L Respiratory 16 18 Rate Blood Pressure 125/51 153/55 O2 Sat by Pulse 96 97 Oximetry - Allied health notes Allied health notes reviewed: nursing, PT, OT FIMS assessment as documented by PT/OT/ST: Locomotion- walk/wheelchair Ambulation Distance 20 - Labs CBC & Chem 7: 02/20/21 06:49 02/20/21 06:49 Labs: Laboratory Results - last 72 hr 02/20/21 02/20/21 06:49 06:49 WBC 7.8 RBC 3.36 L Hgb 10.7 Hct 30.2 L MCV 90 MCH 32 MCHC 36 H RDW 14.8 Plt Count 333 Lymph % (Auto) 15.3 [place] % (Auto) 10.7 H Eos % (Auto) 2.6 Baso % (Auto) 0.3 Lymph # (Auto) 1.2 [place] # (Auto) 0.8 Eos # (Auto) 0.2 Baso # (Auto) 0.0 Seg Neutrophils % 71.1 H Seg Neutrophils # 5.6 Sodium 134 L Potassium 3.7 Chloride 94.6 L Carbon Dioxide 29 Anion Gap 14 BUN 12 Creatinine 0.6 Estimated GFR > 60 BUN/Creatinine Ratio 20 Glucose 90 Calcium 8.6 Total Bilirubin 0.80 AST 32 ALT 32 Alkaline Phosphatase 121 Total Protein 5.6 L Albumin 2.9 L Albumin/Globulin Ratio 1.1 Assessment and Plan Left hip fracture status post IM nail: Continue partial weightbearing status, monitor incision site for any signs of infection or dehiscence. Pain control as needed with goal of weaning down pain medications discussed with patient. DVT prophylaxis for the least 28 to 35 days. Anemia: Postoperative in nature which has normalized now after receiving 2 units of PRBCs on the acute care side. We will continue to monitor CBC every few days and transfuse if needed for hemoglobin less than 7 Hypertension: Patient denies prior diagnosis of this however blood pressure has been elevated during much of her stay. Currently bradycardic on increased dose of propranolol, adjust propranolol and start lisinopril Glaucoma: Discuss patient's medications, she is no longer taking some of the medications that were listed on the admission orders and we will discontinue those. Continue to monitor for any worsening vision. Patient does note that she has poor vision out of the left eye which is slightly matted. Trigeminal neuralgia on the left: Continue medications, monitor for any worsening issues ADL dysfunction: OT will work on improving ability to perform ADLs (including assistive devices) to increase independence and decrease caregiver burden and improve functional transfers and mobility training. Difficulty walking: PT will work on gait training and proper use of assistive devices and advance as appropriate to use of stairs and outside ambulation on uneven surfaces. Unsteadiness on feet: PT will work on improving static and dynamic sitting and standing balance as well as proper use of assistive devices to decrease risk of falls. Abnormality of gait: PT will work to improve safety and efficiency of gait through neuromotor training and gait training along with instruction on proper use of assistive devices. Muscle weakness: PT & OT will work on strengthening exercises to improve functional strength including mixture of closed and open kinetic chain exercises. Debility: PT & OT will work on improving overall functional status to improve participation with ADLs, mobility and social involvement. Fatigue: PT & OT will work on improving endurance through aerobic exercises and therapeutic activity while monitoring patients tolerance for activity and vital signs as needed. DVT ppx: Lovenox, will need to consider transition to oral agent prior to discharge so the patient receives a total of 28-35 days of DVT prophylaxis Pain: Continue physical modalities in therapy and pain medications as needed to achieve functional pain control. Sleep: Monitor and address as needed. Bowel: Monitor and address as needed. Appetite: Monitor and address as needed. Discharge planning: Pending therapy progress and care plan meeting. Will continue discussion with therapy team, SW, patient and family. Restrictions/ Precautions: Falls WB status: Partial weightbearing left lower extremity Functional Hx: ADLs: Independent Cognition: Independent Mobility: No AD Barriers to Discharge: Decreased mobility and ability to perform self care, balance deficits, weakness Estimated Length of Stay: 1014 days Discharge Destination: Home alone with family next-door
[2021-02-21] MEDS: LISINOPRIL 10 MG TAB PO SCH (11:24)
[2021-02-21] MEDS: PROPRANOLOL 40 MG TAB PO SCH ×2 (11:26→21:54)
[2021-02-21] MEDS: oxyCODONE /ACETAMINOPHEN 5-325MG TAB PO PRN ×2 (11:27→18:16)
[2021-02-21] MEDS: LATANOPROST 0.005% OPHTH SOLN 2.5 ML OU SCH (18:08)
[2021-02-21] MEDS: TOBRADEX 0.1-0.3% OPHTH OINT 3.5 GM OU SCH (21:00)
[2021-02-22] MEDS: oxyCODONE /ACETAMINOPHEN 5-325MG TAB PO PRN (05:34)
[2021-02-22] MEDS: LEVOTHYROXINE 100 MCG TAB PO SCH (05:35)
[2021-02-22] MEDS: ENOXAPARIN 40 MG/0.4 ML INJ SUB-Q SCH (09:08)
[2021-02-22] MEDS: OXcarbazepine 300 MG TAB PO SCH ×2 (09:09→22:28)
[2021-02-22] MEDS: PROPRANOLOL 40 MG TAB PO SCH ×2 (09:09→22:28)
[2021-02-22] MEDS: FAMOTIDINE 20 MG TAB PO SCH (09:09)
[2021-02-22] MEDS: LISINOPRIL 10 MG TAB PO SCH (09:10)
[2021-02-22] MEDS: LATANOPROST 0.005% OPHTH SOLN 2.5 ML OU SCH (17:15)
--- NOTE | 2021-02-22 20:07 | IRU Plan of Care ---
Interdisciplinary Plan of Care - IP IRU INTERDISCIPLINARY PLAN: [facility] Inpatient Rehab Unit Plan of Care IRU Interdisciplinary Care Plan Start: 02/20/21 13:13 Freq: Status: Active Protocol: Document 02/22/21 19:54 TH (Rec: 02/22/21 19:58 TH [id number]) Interdisciplinary Problem List Interdisciplinary Problem List Interdisciplinary Problem List Impaired Bathing/Grooming, Query Text:Answers will Trigger Problems Impaired Dressing,Impaired and Outcomes on Worklist. Mobility,Impaired Transfers, Knowledge Deficits,Adjustment to Disability,Discharge Concerns,Community Reintergration,Impaired Home Management,Impaired Safety, Impaired Cardiovascular System IRU Interdisciplinary Care Plan Therapy Services Therapy Services Will Include: Physical Therapy,Occupational Query Text:Patient will be seen for a Therapy minimum of 3 hours of daily therapy 5 out of 7 days a week. Therapy intensity may be adjusted within a 7 consecutive day period to effectively serve the individual needs of the patient. Treatment Frequency/Intensity/Duration Treatment Frequency 5x per week Treatment Intensity 3 hours per day Treatment Duration 10-14 days Problem Area: Eating/Swallowing Eating/Swallowing Outcomes Eating/Swallowing Interventions Problem Area: Bathing/Grooming Bathing/Grooming Outcomes Improve [place] w/ Grooming,Improve [place] w/ Bathing Bathing/Grooming Interventions ADL Training,Use of Assistive Devices,Therapeutic Exercise, Therapeutic Activity, Neuromuscular Re-Education, Balance Work,Activity Tolerance Work,Patient/ Caregiver Education Problem Area: Dressing Dressing Outcomes Improve [place] w/ UB Dressing,Improve [place] w/ LB Dressing Dressing Interventions ADL Training,Use of Assistive Devices,Neuromuscular Re- Education,Therapeutic Exercise ,Balance Work,Modalities, Patient/Caregiver Education Problem Area: Mobility Mobility Outcomes Improve [place] w/ Bed Mobility,Improve [place] w/ Ambulation Mobility Interventions Therapeutic Exercise, Neuromuscular Re-Ed.,Visual/ Perceptual Training,Activity Tolerance Work,Modalities,Use of Assistive Devices,Patient/ Caregiver Education,Bed Mobility Work,Household Mobility Work Problem Area: Transfers Transfers Outcomes Improve [place] w/ Bed Transfers,Improve [place] w/ Toilet Transfers,Improve [place] w/ Tub/Shower Transfers Transfers Interventions Transfer Training,Therapeutic Exercise,Neuromuscular Re- Education,Visual/Perceptual Training,Activity Tolerance Work,Modalities,Use of Assistive Devices,Patient/ Caregiver Education Problem Area: Bowel/Bladder Managment Bowel/Bladder Outcomes Bowel/Bladder Interventions Problem Area: Toileting Toileting Outcomes Improve [place] w/ Toileting Toileting Interventions ADL Training,Balance Work,Use of Assistive Devices,Patient/ Caregiver Education Problem Area: Nutrition Nutrition Outcomes Nutrition Interventions Problem Area: Comprehension Comprehension Outcomes Comprehension Interventions Problem Area: Expression Expression Outcomes Expression Interventions Problem Area: Problem Solving Problem Solving Outcomes Improve Problem Solving Problem Solving Interventions Cognitive Training,Visual/ Perceptual Training,Safety Education,Patient/Caregiver Education Problem Area: Memory Memory Outcomes Memory Interventions Problem Area: Pain Management Pain Management Outcomes Pain Management Interventions Problem Area: Knowledge Deficits Knowledge Deficits Outcomes Verbalize Understanding of S/S of Stroke Knowledge Deficits Interventions Disease/Injury/Sx. Intervention Education, Medication Use Education Problem Area: Skin/Tissue Integrity Skin/Tissue Integrity Outcomes Skin/Tissue Integrity Interventions Problem Area: Social Interaction Social Interaction Outcomes Social Interaction Interventions Problem Area: Adjustment to Disability Adjustment to Disability Outcomes Adjustment to Disability Interventions Problem Area: Discharge Concerns Discharge Concerns Outcomes Discharge w/ Necessary Equipment,Have Home Health/ Outpatient Services Discharge Concerns Interventions Discharge Planning,Equipment Assessment, Acquisition and Placement,Family/Caregiver Training Problem Area: Community Reintegration Community Reintegration Outcomes Community Reintegration Interventions Problem Area: Home Management Home Management Outcomes Improve [place] w/ Home Management Home Management Interventions Meal Preparation,Clothing Care ,Activity Tolerance Work,House Cleaning,Patient/Caregiver Education Problem Area: Safety Safety Outcomes Provide Safe Environment, Perform Selfcare Safely, Demonstrate Good Safety w/ Transfers/Mobility Safety Interventions Identify Fall Risk,[place] Pt. to Environment,Reduce Environmental Hazards,Neuro Check Assessment,Implement Mechanical Devices, i.e. Chair Alarm (Post Fall Update),Re- Educate Patient/Caregiver for Safety (Post Fall Update) Problem Area: Medication Education Medication Education Outcomes Medication Education Interventions Problem Area: Diabetes Education Diabetes Education Outcomes Diabetes Education Interventions Problem Area: Oxygenation Oxygenation Outcomes Oxygenation Interventions Problem Area: Cardiovascular Cardiovascular Outcomes Maintain or Improve Cardiovascular Status Cardiovascular Interventions Assess Vital Signs at least Every 4 hours,Cardiac Monitoring, EKG and ABG as Ordered. Physician Only Medical Prognosis and Rehabilitation Good rehab potential, good medical prognosis Potential (Completed by Physician) This plan of care has been developed based on the findings from the pre- admission assessment, post admission physician evaluation, information gathered from the assessments from all therapy disciplines and other pertinent clinicians. The plan of care has been reviewed and discussed in collaboration with the interdisciplinary team. The plan of care will be reviewed and updated at least weekly.
[2021-02-22] MEDS: TOBRADEX 0.1-0.3% OPHTH OINT 3.5 GM OU SCH (21:00)
[2021-02-23] MEDS: LEVOTHYROXINE 100 MCG TAB PO SCH (05:45)
[2021-02-23] MEDS: PROPRANOLOL 40 MG TAB PO SCH ×2 (09:00→21:22)
[2021-02-23] MEDS: FAMOTIDINE 20 MG TAB PO SCH (09:00)
[2021-02-23] MEDS: LISINOPRIL 10 MG TAB PO SCH (09:00)
[2021-02-23] MEDS: OXcarbazepine 300 MG TAB PO SCH ×2 (09:00→21:21)
[2021-02-23] MEDS: ENOXAPARIN 40 MG/0.4 ML INJ SUB-Q SCH (09:00)
[2021-02-23] MEDS: oxyCODONE /ACETAMINOPHEN 5-325MG TAB PO PRN (18:10)
[2021-02-23] MEDS: LATANOPROST 0.005% OPHTH SOLN 2.5 ML OU SCH (18:10)
[2021-02-23] MEDS: TOBRADEX 0.1-0.3% OPHTH OINT 3.5 GM OU SCH (21:22)
[2021-02-24] MEDS: LEVOTHYROXINE 100 MCG TAB PO SCH (06:38)
[2021-02-24] MEDS: OXcarbazepine 300 MG TAB PO SCH ×2 (08:06→21:36)
[2021-02-24] MEDS: ENOXAPARIN 40 MG/0.4 ML INJ SUB-Q SCH (08:07)
[2021-02-24] MEDS: oxyCODONE /ACETAMINOPHEN 5-325MG TAB PO PRN (08:07)
[2021-02-24] MEDS: LISINOPRIL 10 MG TAB PO SCH (08:07)
[2021-02-24] MEDS: PROPRANOLOL 40 MG TAB PO SCH ×3 (08:07→21:35)
[2021-02-24] MEDS: FAMOTIDINE 20 MG TAB PO SCH (08:07)
[2021-02-24 08:27] LABS: Hematocrit 32.9 % (30.3-42.9); Hemoglobin 11.2 gm/dl (10.1-14.3); Mean Corpuscular HGB Conc 34 % (30-34); Mean Corpuscular Volume 92 fl (79-97); Platelet Count 407 K/mm3 (140-440); Red Blood Count 3.58 M/mm3 (3.65-5.03); Red Cell Distribution Width 15.5 % (13.2-15.2)
[2021-02-24 08:45] LABS: BUN/Creatinine Ratio 19; Blood Urea Nitrogen 13 mg/dL (7-17); Calcium 8.1 mg/dL (8.4-10.2); Hemolysis Index 0
--- NOTE | 2021-02-24 08:58 | Progress Note ---
Subjective Date of service: 02/24/21 Principal diagnosis: Left Hip Fracture Interval history: 85-year-old female who experienced a fall on February 13, 2021 after being knocked over by her dog and landing on her left hip with pain. Patient was taken to the ED by EMS who noted that there is extreme pain with any movement of the left lower extremity which was externally rotated. X-ray of the pelvis showed a displaced intertrochanteric fracture of the proximal left femur. Orthopedics was consulted and the patient went to the OR on February 14, 2021 where she had a intramedullary nail placed for left femur repair by Dr. Loza. Patient tolerated the procedure well and had routine healing afterwards, was noted to have hyponatremia as well as postoperative anemia and hypertension. She was transfused a total of 2 units PRBCs. Interval History: Patient is participating in therapy and making reasonable progress. Taking rest breaks as needed. +BM. Denies palpitations, dyspnea, cough, N/V. Left hip fracture status post IM nail: Continue partial weightbearing, incision not infected or dehisced, pain control as needed, DVT prophylaxis, partial weightbearing. Anemia: Postoperative, improved after transfusion of 2 units PRBC. Currently stable, monitor Hypertension: Patient denies this diagnosis previously however she is frequently elevated. Hospitalist increase propranolol on acute care side, heart rate is bradycardic frequently, will decrease propranolol to 40 mg twice daily and start lisinopril for better blood pressure control, monitor hypertension and bradycardia for improvement. Hypokalemia: Check magnesium and replace potassium. Recheck labs afterwards. Pain: Fairly controlled currently on oral medications ADL dysfunction: Continue to work with occupational therapy to improve ability to perform self-care as patient lives alone Mobility dysfunction: Continue to work with physical therapy to improve patient's ability to ambulate with assistive device while maintaining weightbearing restriction, may need to discharge home at wheelchair level if weightbearing does not advance All records, vitals, labs and medications were reviewed. No other issues per patient, nursing or therapy. Objective - Exam Narrative Exam: MUSCULOSKELETAL SPECIALTY EXAM CONSTITUTIONAL: Well developed, well nourished, appropriately groomed RESPIRATORY: Clear to auscultation bilaterally, no increased work of breathing CARDIOVASCULAR: Regular Rate/ Rhythm, no swelling, edema or tenderness in BUE or BLE. All extremities warm. GI: + bowel sounds, soft, NTTP, nondistended. INTEGUMENTARY: Surgical site at left hip, otherwise normal, no lesion, rash, masses or bruising noted in extremities. MUSCULOSKELETAL: BUE and BLE normal without defect, crepitus, subluxation, effusion, arthritic changes or TTP. BUE 4+/5, good ROM, with normal tone. RLE 4+/5 good ROM, with normal tone, LLE with fair range of motion and 3/5 secondary to pain, normal tone NEURO: CN 2-12 grossly intact. Sensation intact in all extremities. Coordination intact in BUE. No tremor noted in 4 extremities. POSTURE and GAIT: Sitting posture good. PSYCH: Alert, oriented x3, affect appears normal. Insight appears intact. - Constitutional Vitals: Vital Signs - 12hr 02/23/21 02/24/21 02/24/21 21:22 03:23 07:39 Temperature 97.7 F 97.8 F Pulse Rate 65 69 56 L Respiratory 16 18 Rate Blood Pressure 143/53 138/69 140/54 O2 Sat by Pulse 97 98 Oximetry - Allied health notes Allied health notes reviewed: nursing, PT, OT FIMS assessment as documented by PT/OT/ST: Locomotion- walk/wheelchair Ambulation Distance 20 - Labs CBC & Chem 7: 02/24/21 06:51 02/24/21 06:51 Labs: Laboratory Results - last 72 hr 02/24/21 02/24/21 06:51 06:51 WBC 6.8 RBC 3.58 L Hgb 11.2 Hct 32.9 MCV 92 MCH 31 MCHC 34 RDW 15.5 H Plt Count 407 Sodium 136 L Potassium 3.2 L Chloride 96.0 L Carbon Dioxide 30 Anion Gap 13 BUN 13 Creatinine 0.7 Estimated GFR > 60 BUN/Creatinine Ratio 19 Glucose 78 Calcium 8.1 L Assessment and Plan Left hip fracture status post IM nail: Continue partial weightbearing status, monitor incision site for any signs of infection or dehiscence. Pain control as needed with goal of weaning down pain medications discussed with patient. DVT prophylaxis for the least 28 to 35 days. Anemia: Postoperative in nature which has normalized now after receiving 2 units of PRBCs on the acute care side. We will continue to monitor CBC every few days and transfuse if needed for hemoglobin less than 7 Hypertension: Patient denies prior diagnosis of this however blood pressure has been elevated during much of her stay. Currently bradycardic on increased dose of propranolol, adjust propranolol and start lisinopril Hypokalemia: Check magnesium, replace potassium. Monitor labs for resolution Glaucoma: Discuss patient's medications, she is no longer taking some of the medications that were listed on the admission orders and we will discontinue those. Continue to monitor for any worsening vision. Patient does note that she has poor vision out of the left eye which is slightly matted. Trigeminal neuralgia on the left: Continue medications, monitor for any worsening issues ADL dysfunction: OT will work on improving ability to perform ADLs (including assistive devices) to increase independence and decrease caregiver burden and improve functional transfers and mobility training. Difficulty walking: PT will work on gait training and proper use of assistive devices and advance as appropriate to use of stairs and outside ambulation on uneven surfaces. Unsteadiness on feet: PT will work on improving static and dynamic sitting and standing balance as well as proper use of assistive devices to decrease risk of falls. Abnormality of gait: PT will work to improve safety and efficiency of gait through neuromotor training and gait training along with instruction on proper use of assistive devices. Muscle weakness: PT & OT will work on strengthening exercises to improve functional strength including mixture of closed and open kinetic chain exercises. Debility: PT & OT will work on improving overall functional status to improve participation with ADLs, mobility and social involvement. Fatigue: PT & OT will work on improving endurance through aerobic exercises and therapeutic activity while monitoring patients tolerance for activity and vital signs as needed. DVT ppx: Lovenox, will need to consider transition to oral agent prior to discharge so the patient receives a total of 28-35 days of DVT prophylaxis Pain: Continue physical modalities in therapy and pain medications as needed to achieve functional pain control. Sleep: Monitor and address as needed. Bowel: Monitor and address as needed. Appetite: Monitor and address as needed. Discharge planning: Pending therapy progress and care plan meeting. Will continue discussion with therapy team, SW, patient and family. Restrictions/ Precautions: Falls WB status: Partial weightbearing left lower extremity Functional Hx: ADLs: Independent Cognition: Independent Mobility: No AD Barriers to Discharge: Decreased mobility and ability to perform self care, balance deficits, weakness Estimated Length of Stay: 1014 days Discharge Destination: Home alone with family next-door
[2021-02-24] MEDS: POTASSIUM CHLORIDE ER 20 MEQ TAB PO SCH ×2 (13:04→21:35)
[2021-02-24] MEDS: LATANOPROST 0.005% OPHTH SOLN 2.5 ML OU SCH (17:40)
[2021-02-24] MEDS: TOBRADEX 0.1-0.3% OPHTH OINT 3.5 GM OU SCH ×2 (21:36→21:39)
[2021-02-25] MEDS: LEVOTHYROXINE 100 MCG TAB PO SCH (05:30)
--- NOTE | 2021-02-25 09:26 | Progress Note ---
Subjective Date of service: 02/25/21 Principal diagnosis: Left Hip Fracture Interval history: 85-year-old female who experienced a fall on February 13, 2021 after being knocked over by her dog and landing on her left hip with pain. Patient was taken to the ED by EMS who noted that there is extreme pain with any movement of the left lower extremity which was externally rotated. X-ray of the pelvis showed a displaced intertrochanteric fracture of the proximal left femur. Orthopedics was consulted and the patient went to the OR on February 14, 2021 where she had a intramedullary nail placed for left femur repair by Dr. Loza. Patient tolerated the procedure well and had routine healing afterwards, was noted to have hyponatremia as well as postoperative anemia and hypertension. She was transfused a total of 2 units PRBCs. Interval History: Patient is participating in therapy and making reasonable progress. Taking rest breaks as needed. +BM. Denies palpitations, dyspnea, cough, N/V. Little bit of increased pain this morning prior to administration of pain medications. Left hip fracture status post IM nail: Continue partial weightbearing, incision not infected or dehisced, pain control as needed, DVT prophylaxis. I have contacted Ortho for weightbearing advancement timeline Anemia: Postoperative, improved after transfusion of 2 units PRBC. Currently stable, monitor Hypertension: Patient denies this diagnosis previously however she is frequently elevated. Hospitalist increase propranolol on acute care side, heart rate is bradycardic frequently, will decrease propranolol to 40 mg twice daily and start lisinopril for better blood pressure control, monitor hypertension and bradycardia for improvement. Blood pressure little bit elevated this morning but lisinopril has not been given yet Hypokalemia: Continue to replace potassium, recheck labs tomorrow. Magnesium within normal limits Pain: Fairly controlled currently on oral medications ADL dysfunction: Continue to work with occupational therapy to improve ability to perform self-care as patient lives alone Mobility dysfunction: Continue to work with physical therapy to improve patient's ability to ambulate with assistive device while maintaining weightbearing restriction, may need to discharge home at wheelchair level if weightbearing does not advance All records, vitals, labs and medications were reviewed. No other issues per patient, nursing or therapy. Patient was discussed during team conference. Making decent progress and abiding by weightbearing precautions. Will look to discharge patient next week on 03/04 with a 3 in 1 and most likely a wheelchair unless her weightbearing status is upgraded. Living at home with her pets will be difficult to abide by weightbearing precautions utilizing a rolling walker. Patient will need to continue on DVT prophylaxis, will switch her to oral agent prior to discharge Objective - Exam Narrative Exam: MUSCULOSKELETAL SPECIALTY EXAM CONSTITUTIONAL: Well developed, well nourished, appropriately groomed RESPIRATORY: Clear to auscultation bilaterally, no increased work of breathing CARDIOVASCULAR: Regular Rate/ Rhythm, no swelling, edema or tenderness in BUE or BLE. All extremities warm. GI: + bowel sounds, soft, NTTP, nondistended. INTEGUMENTARY: Surgical site at left hip with appropriate tenderness and bruising but no drainage or signs of infection, otherwise normal, no lesion, rash, masses or bruising noted in extremities. MUSCULOSKELETAL: BUE and BLE normal without defect, crepitus, subluxation, effusion, arthritic changes or TTP. BUE 4+/5, good ROM, with normal tone. RLE 4+/5 good ROM, with normal tone, LLE with fair range of motion and 4-/5 s econdary to pain, normal tone NEURO: CN 2-12 grossly intact. Sensation intact in all extremities. Coordination intact in BUE. No tremor noted in 4 extremities. POSTURE and GAIT: Sitting posture good. PSYCH: Alert, oriented x3, affect appears normal. Insight appears intact. - Constitutional Vitals: Vital Signs - 12hr 02/25/21 02/25/21 04:07 07:50 Temperature 98.0 F 97.8 F Pulse Rate 65 63 Respiratory 16 18 Rate Blood Pressure 115/47 151/63 O2 Sat by Pulse 96 97 Oximetry - Allied health notes Allied health notes reviewed: nursing, PT, OT FIMS assessment as documented by PT/OT/ST: Locomotion- walk/wheelchair Ambulation Distance 20 - Labs CBC & Chem 7: 02/24/21 06:51 02/24/21 06:51 Labs: Laboratory Results - last 72 hr 02/24/21 02/24/21 02/24/21 06:51 06:51 06:51 WBC 6.8 RBC 3.58 L Hgb 11.2 Hct 32.9 MCV 92 MCH 31 MCHC 34 RDW 15.5 H Plt Count 407 Sodium 136 L Potassium 3.2 L Chloride 96.0 L Carbon Dioxide 30 Anion Gap 13 BUN 13 Creatinine 0.7 Estimated GFR > 60 BUN/Creatinine Ratio 19 Glucose 78 Calcium 8.1 L Magnesium 2.10 Assessment and Plan Left hip fracture status post IM nail: Continue partial weightbearing status, monitor incision site for any signs of infection or dehiscence. Pain control as needed with goal of weaning down pain medications discussed with patient. DVT prophylaxis for the least 28 to 35 days. Anemia: Postoperative in nature which has normalized now after receiving 2 units of PRBCs on the acute care side. We will continue to monitor CBC every few days and transfuse if needed for hemoglobin less than 7 Hypertension: Patient denies prior diagnosis of this however blood pressure has been elevated during much of her stay. Continue to monitor patient on new dose of propranolol and lisinopril and look to increase as needed for further blood pressure control Hypokalemia: replace potassium. Monitor labs for resolution Glaucoma: Discuss patient's medications, she is no longer taking some of the medications that were listed on the admission orders and we will discontinue those. Continue to monitor for any worsening vision. Patient does note that she has poor vision out of the left eye which is slightly matted. Trigeminal neuralgia on the left: Continue medications, monitor for any worsening issues ADL dysfunction: OT will work on improving ability to perform ADLs (including assistive devices) to increase independence and decrease caregiver burden and improve functional transfers and mobility training. Difficulty walking: PT will work on gait training and proper use of assistive devices and advance as appropriate to use of stairs and outside ambulation on uneven surfaces. Unsteadiness on feet: PT will work on improving static and dynamic sitting and standing balance as well as proper use of assistive devices to decrease risk of falls. Abnormality of gait: PT will work to improve safety and efficiency of gait through neuromotor training and gait training along with instruction on proper use of assistive devices. Muscle weakness: PT & OT will work on strengthening exercises to improve functional strength including mixture of closed and open kinetic chain exercises. Debility: PT & OT will work on improving overall functional status to improve participation with ADLs, mobility and social involvement. Fatigue: PT & OT will work on improving endurance through aerobic exercises and therapeutic activity while monitoring patients tolerance for activity and vital signs as needed. DVT ppx: Lovenox, will need to consider transition to oral agent prior to discharge so the patient receives a total of 28-35 days of DVT prophylaxis Pain: Continue physical modalities in therapy and pain medications as needed to achieve functional pain control. Sleep: Monitor and address as needed. Bowel: Monitor and address as needed. Appetite: Monitor and address as needed. Discharge planning: Pending therapy progress and care plan meeting. Will continue discussion with therapy team, SW, patient and family. Restrictions/ Precautions: Falls WB status: Partial weightbearing left lower extremity Functional Hx: ADLs: Independent Cognition: Independent Mobility: No AD Barriers to Discharge: Decreased mobility and ability to perform self care, balance deficits, weakness Estimated Length of Stay: 1014 days look to discharge on 03/04 with 3 in 1 and wheelchair pending weightbearing status Discharge Destination: Home alone with family next-door
[2021-02-25] MEDS: FAMOTIDINE 20 MG TAB PO SCH (10:36)
[2021-02-25] MEDS: ENOXAPARIN 40 MG/0.4 ML INJ SUB-Q SCH (10:36)
[2021-02-25] MEDS: OXcarbazepine 300 MG TAB PO SCH ×2 (10:36→21:59)
[2021-02-25] MEDS: LISINOPRIL 10 MG TAB PO SCH (10:37)
[2021-02-25] MEDS: PROPRANOLOL 40 MG TAB PO SCH ×2 (10:37→21:57)
[2021-02-25] MEDS: POTASSIUM CHLORIDE ER 20 MEQ TAB PO SCH ×2 (10:38→21:57)
[2021-02-25] MEDS: oxyCODONE /ACETAMINOPHEN 5-325MG TAB PO PRN (10:38)
[2021-02-25] MEDS: LATANOPROST 0.005% OPHTH SOLN 2.5 ML OU SCH (19:04)
[2021-02-25] MEDS: TOBRADEX 0.1-0.3% OPHTH OINT 3.5 GM OU SCH (21:57)
[2021-02-26] MEDS: LEVOTHYROXINE 100 MCG TAB PO SCH (05:56)
[2021-02-26 06:08] LABS: Hematocrit 32.5 % (30.3-42.9); Hemoglobin 11.2 gm/dl (10.1-14.3); Mean Corpuscular HGB Conc 34 % (30-34); Mean Corpuscular Volume 92 fl (79-97); Platelet Count 422 K/mm3 (140-440); Red Blood Count 3.52 M/mm3 (3.65-5.03); Red Cell Distribution Width 15.9 % (13.2-15.2)
[2021-02-26 06:22] LABS: Blood Urea Nitrogen 14 mg/dL (7-17); Hemolysis Index 1
[2021-02-26 06:24] LABS: BUN/Creatinine Ratio 20
[2021-02-26] MEDS: LISINOPRIL 10 MG TAB PO SCH (08:55)
[2021-02-26] MEDS: FAMOTIDINE 20 MG TAB PO SCH (08:55)
[2021-02-26] MEDS: POTASSIUM CHLORIDE ER 20 MEQ TAB PO SCH ×2 (08:56→23:12)
[2021-02-26] MEDS: ENOXAPARIN 40 MG/0.4 ML INJ SUB-Q SCH (08:57)
[2021-02-26] MEDS: OXcarbazepine 300 MG TAB PO SCH ×2 (08:59→23:11)
[2021-02-26] MEDS: PROPRANOLOL 40 MG TAB PO SCH ×2 (09:00→23:12)
--- NOTE | 2021-02-26 13:47 | Progress Note ---
Subjective Date of service: 02/26/21 Principal diagnosis: Left Hip Fracture Interval history: 85-year-old female who experienced a fall on February 13, 2021 after being knocked over by her dog and landing on her left hip with pain. Patient was taken to the ED by EMS who noted that there is extreme pain with any movement of the left lower extremity which was externally rotated. X-ray of the pelvis showed a displaced intertrochanteric fracture of the proximal left femur. Orthopedics was consulted and the patient went to the OR on February 14, 2021 where she had a intramedullary nail placed for left femur repair by Dr. Loza. Patient tolerated the procedure well and had routine healing afterwards, was noted to have hyponatremia as well as postoperative anemia and hypertension. She was transfused a total of 2 units PRBCs. Interval History: Patient is participating in therapy and making reasonable progress. Taking rest breaks as needed. +BM. Denies palpitations, dyspnea, cough, N/V. Doing well with therapy, no acute events overnight. Walking further and abiding by weightbearing precautions. Left hip fracture status post IM nail: Continue partial weightbearing, incision not infected or dehisced, pain control as needed, DVT prophylaxis. I have contacted Ortho for weightbearing advancement timeline, patient states she was seen by Dr. Loza on 02/25, I will contact again for further orders. Anemia: Postoperative, improved after transfusion of 2 units PRBC. Currently stable, monitor Hypertension: Patient denies this diagnosis previously however she is frequently elevated. Blood pressure still labile, lisinopril likely not stabilized yet. Continue to monitor over the next couple of days and look to increase lisinopril if needed. Heart rate is now within a reasonable rate above 60. Hypokalemia: Potassium is now normalized. Continue to monitor. Magnesium within normal limits Pain: Fairly controlled currently on oral medications ADL dysfunction: Continue to work with occupational therapy to improve ability to perform self-care as patient lives alone Mobility dysfunction: Continue to work with physical therapy to improve patient's ability to ambulate with assistive device while maintaining weightbearing restriction, may need to discharge home at wheelchair level if weightbearing does not advance All records, vitals, labs and medications were reviewed. No other issues per patient, nursing or therapy. Objective - Exam Narrative Exam: MUSCULOSKELETAL SPECIALTY EXAM CONSTITUTIONAL: Well developed, well nourished, appropriately groomed RESPIRATORY: Clear to auscultation bilaterally, no increased work of breathing CARDIOVASCULAR: Regular Rate/ Rhythm, no swelling, edema or tenderness in BUE or BLE. All extremities warm. GI: + bowel sounds, soft, NTTP, nondistended. INTEGUMENTARY: Surgical site at left hip with appropriate tenderness and bruising but no drainage or signs of infection, otherwise normal, no lesion, rash, masses or bruising noted in extremities. MUSCULOSKELETAL: BUE and BLE normal without defect, crepitus, subluxation, effusion, arthritic changes or TTP. BUE 4+/5, good ROM, with normal tone. RLE 4+/5 good ROM, with normal tone, LLE with fair range of motion and 4-/5 secondary to pain, normal tone NEURO: CN 2-12 grossly intact. Sensation intact in all extremities. Coordination intact in BUE. No tremor noted in 4 extremities. POSTURE and GAIT: Sitting posture good. Patient walking with RW and abiding by weightbearing precautions PSYCH: Alert, oriented x3, affect appears normal. Insight appears intact. - Constitutional Vitals: Vital Signs - 12hr 02/26/21 02/26/21 02/26/21 07:07 08:55 09:00 Temperature 97.6 F Pulse Rate 65 65 65 Respiratory 16 Rate Blood Pressure 147/60 147/60 147/60 O2 Sat by Pulse 98 Oximetry - Allied health notes Allied health notes reviewed: nursing, PT, OT FIMS assessment as documented by PT/OT/ST: Locomotion- walk/wheelchair Ambulation Distance 20 - Labs CBC & Chem 7: 02/26/21 05:09 02/26/21 05:09 Labs: Laboratory Results - last 72 hr 02/24/21 02/24/21 02/24/21 06:51 06:51 06:51 WBC 6.8 RBC 3.58 L Hgb 11.2 Hct 32.9 MCV 92 MCH 31 MCHC 34 RDW 15.5 H Plt Count 407 Sodium 136 L Potassium 3.2 L Chloride 96.0 L Carbon Dioxide 30 Anion Gap 13 BUN 13 Creatinine 0.7 Estimated GFR > 60 BUN/Creatinine Ratio 19 Glucose 78 Calcium 8.1 L Magnesium 2.10 02/26/21 02/26/21 05:09 05:09 WBC 7.0 RBC 3.52 L Hgb 11.2 Hct 32.5 MCV 92 MCH 32 MCHC 34 RDW 15.9 H Plt Count 422 Sodium 135 L Potassium 4.0 D Chloride 99.3 Carbon Dioxide 27 Anion Gap 13 BUN 14 Creatinine 0.7 Estimated GFR > 60 BUN/Creatinine Ratio 20 Glucose 88 Calcium 8.0 L Magnesium Assessment and Plan Left hip fracture status post IM nail: Continue partial weightbearing status, monitor incision site for any signs of infection or dehiscence. Pain control as needed with goal of weaning down pain medications discussed with patient. DVT prophylaxis for the least 28 to 35 days. Anemia: Postoperative in nature which has normalized now after receiving 2 units of PRBCs on the acute care side. We will continue to monitor CBC every few days and transfuse if needed for hemoglobin less than 7 Hypertension: Patient denies prior diagnosis of this however blood pressure has been elevated during much of her stay. Continue to monitor patient on new dose of propranolol and lisinopril and look to increase as needed for further blood pressure control Hypokalemia: replace potassium, normalized. Monitor labs Glaucoma: Discuss patient's medications, she is no longer taking some of the medications that were listed on the admission orders and we will discontinue those. Continue to monitor for any worsening vision. Patient does note that she has poor vision out of the left eye which is slightly matted. Trigeminal neuralgia on the left: Continue medications, monitor for any worsening issues ADL dysfunction: OT will work on improving ability to perform ADLs (including assistive devices) to increase independence and decrease caregiver burden and improve functional transfers and mobility training. Difficulty walking: PT will work on gait training and proper use of assistive devices and advance as appropriate to use of stairs and outside ambulation on uneven surfaces. Unsteadiness on feet: PT will work on improving static and dynamic sitting and standing balance as well as proper use of assistive devices to decrease risk of falls. Abnormality of gait: PT will work to improve safety and efficiency of gait throu neuromotor training and gait training along with instruction on proper use of assistive devices. Muscle weakness: PT & OT will work on strengthening exercises to improve functional strength including mixture of closed and open kinetic chain exercises. Debility: PT & OT will work on improving overall functional status to improve participation with ADLs, mobility and social involvement. Fatigue: PT & OT will work on improving endurance through aerobic exercises and therapeutic activity while monitoring patients tolerance for activity and vital signs as needed. DVT ppx: Lovenox, will need to consider transition to oral agent prior to discharge so the patient receives a total of 28-35 days of DVT prophylaxis Pain: Continue physical modalities in therapy and pain medications as needed to achieve functional pain control. Sleep: Monitor and address as needed. Bowel: Monitor and address as needed. Appetite: Monitor and address as needed. Discharge planning: Pending therapy progress and care plan meeting. Will continue discussion with therapy team, SW, patient and family. Restrictions/ Precautions: Falls WB status: Partial weightbearing left lower extremity Functional Hx: ADLs: Independent Cognition: Independent Mobility: No AD Barriers to Discharge: Decreased mobility and ability to perform self care, balance deficits, weakness Estimated Length of Stay: 1014 days look to discharge on 03/04 with 3 in 1 and wheelchair pending weightbearing status Discharge Destination: Home alone with family next-door
[2021-02-26] MEDS: LATANOPROST 0.005% OPHTH SOLN 2.5 ML OU SCH (18:02)
[2021-02-26] MEDS: TOBRADEX 0.1-0.3% OPHTH OINT 3.5 GM OU SCH ×2 (23:13→23:17)
[2021-02-27] MEDS: LEVOTHYROXINE 100 MCG TAB PO SCH (05:07)
[2021-02-27] MEDS: OXcarbazepine 300 MG TAB PO SCH ×2 (08:39→21:39)
[2021-02-27] MEDS: FAMOTIDINE 20 MG TAB PO SCH (08:40)
[2021-02-27] MEDS: POTASSIUM CHLORIDE ER 20 MEQ TAB PO SCH (08:40)
[2021-02-27] MEDS: LISINOPRIL 10 MG TAB PO SCH (08:40)
[2021-02-27] MEDS: ENOXAPARIN 40 MG/0.4 ML INJ SUB-Q SCH (08:40)
--- NOTE | 2021-02-27 08:51 | Progress Note ---
Subjective Date of service: 02/27/21 Principal diagnosis: Left Hip Fracture Interval history: 85-year-old female who experienced a fall on February 13, 2021 after being knocked over by her dog and landing on her left hip with pain. Patient was taken to the ED by EMS who noted that there is extreme pain with any movement of the left lower extremity which was externally rotated. X-ray of the pelvis showed a displaced intertrochanteric fracture of the proximal left femur. Orthopedics was consulted and the patient went to the OR on February 14, 2021 where she had a intramedullary nail placed for left femur repair by Dr. Loza. Patient tolerated the procedure well and had routine healing afterwards, was noted to have hyponatremia as well as postoperative anemia and hypertension. She was transfused a total of 2 units PRBCs. Interval History: Patient is participating in therapy and making reasonable progress. Taking rest breaks as needed. +BM. Denies palpitations, dyspnea, cough, N/V. Doing well with therapy, no acute events overnight. Walking and abiding by weightbearing precautions. Patient states that she no longer wants to take TobraDex ointment. Left hip fracture status post IM nail: Continue partial weightbearing, incision not infected or dehisced, pain control as needed, DVT prophylaxis. I have contacted Ortho for weightbearing advancement timeline, patient states she was seen by Dr. Loza on 02/25, I will contact again for further orders. Anemia: Postoperative, improved after transfusion of 2 units PRBC. Currently stable, monitor Hypertension: Patient denies this diagnosis previously however she is frequently elevated. Blood pressure still labile, but does seem to be stabilizing. Continue to monitor over the next couple of days and look to increase lisinopril if needed. Heart rate is now within a reasonable rate above 60. Hypokalemia: Potassium is now normalized. Continue to monitor. Magnesium within normal limits Pain: Fairly controlled currently on oral medications ADL dysfunction: Continue to work with occupational therapy to improve ability to perform self-care as patient lives alone Mobility dysfunction: Continue to work with physical therapy to improve patient's ability to ambulate with assistive device while maintaining weightbe aring restriction, may need to discharge home at wheelchair level if weightbearing does not advance All records, vitals, labs and medications were reviewed. No other issues per patient, nursing or therapy. Objective - Exam Narrative Exam: MUSCULOSKELETAL SPECIALTY EXAM CONSTITUTIONAL: Well developed, well nourished, appropriately groomed RESPIRATORY: Clear to auscultation bilaterally, no increased work of breathing CARDIOVASCULAR: Regular Rate/ Rhythm, no swelling, edema or tenderness in BUE or BLE. All extremities warm. GI: + bowel sounds, soft, NTTP, nondistended. INTEGUMENTARY: Surgical site at left hip with appropriate tenderness and bruising but no drainage or signs of infection, otherwise normal, no lesion, rash, masses or bruising noted in extremities. MUSCULOSKELETAL: BUE and BLE normal without defect, crepitus, subluxation, effusion, arthritic changes or TTP. BUE 4+/5, good ROM, with normal tone. RLE 4+/5 good ROM, with normal tone, LLE with fair range of motion and 4-/5 secondary to pain, normal tone NEURO: CN 2-12 grossly intact. Sensation intact in all extremities. Coordination intact in BUE. No tremor noted in 4 extremities. POSTURE and GAIT: Sitting posture good. Patient walking with RW and abiding by weightbearing precautions PSYCH: Alert, oriented x3, affect appears normal. Insight appears intact. - Constitutional Vitals: Vital Signs - 12hr 02/27/21 02/27/21 05:10 07:06 Temperature 97.6 F 97.8 F Pulse Rate 67 63 Respiratory 18 16 Rate Blood Pressure 123/54 136/55 O2 Sat by Pulse 96 99 Oximetry - Allied health notes Allied health notes reviewed: nursing, PT, OT FIMS assessment as documented by PT/OT/ST: Locomotion- walk/wheelchair Ambulation Distance 20 - Labs CBC & Chem 7: 02/26/21 05:09 02/26/21 05:09 Labs: Laboratory Results - last 72 hr 02/24/21 02/26/21 02/26/21 06:51 05:09 05:09 WBC 7.0 RBC 3.52 L Hgb 11.2 Hct 32.5 MCV 92 MCH 32 MCHC 34 RDW 15.9 H Plt Count 422 Sodium 135 L Potassium 4.0 D Chloride 99.3 Carbon Dioxide 27 Anion Gap 13 BUN 14 Creatinine 0.7 Estimated GFR > 60 BUN/Creatinine Ratio 20 Glucose 88 Calcium 8.0 L Magnesium 2.10 Assessment and Plan Left hip fracture status post IM nail: Continue partial weightbearing status, monitor incision site for any signs of infection or dehiscence. Pain control as needed with goal of weaning down pain medications discussed with patient. DVT prophylaxis for the least 28 to 35 days. Anemia: Postoperative in nature which has normalized now after receiving 2 units of PRBCs on the acute care side. We will continue to monitor CBC every few days and transfuse if needed for hemoglobin less than 7 Hypertension: Patient denies prior diagnosis of this however blood pressure has been elevated during much of her stay. Continue to monitor patient on new dose of propranolol and lisinopril and look to increase as needed for further blood pressure control. Goal less than 140/90. Hypokalemia: replace potassium, normalized. Monitor labs Glaucoma: Discuss patient's medications, she is no longer taking some of the medications that were listed on the admission orders and we will discontinue those. Continue to monitor for any worsening vision. Patient does note that she has poor vision out of the left eye. Trigeminal neuralgia on the left: Continue medications, monitor for any worsening issues ADL dysfunction: OT will work on improving ability to perform ADLs (including assistive devices) to increase independence and decrease caregiver burden and improve functional transfers and mobility training. Difficulty walking: PT will work on gait training and proper use of assistive devices and advance as appropriate to use of stairs and outside ambulation on uneven surfaces. Unsteadiness on feet: PT will work on improving static and dynamic sitting and standing balance as well as proper use of assistive devices to decrease risk of falls. Abnormality of gait: PT will work to improve safety and efficiency of gait through neuromotor training and gait training along with instruction on proper use of assistive devices. Muscle weakness: PT & OT will work on strengthening exercises to improve functional strength including mixture of closed and open kinetic chain exe rcises. Debility: PT & OT will work on improving overall functional status to improve participation with ADLs, mobility and social involvement. Fatigue: PT & OT will work on improving endurance through aerobic exercises and therapeutic activity while monitoring patients tolerance for activity and vital signs as needed. DVT ppx: Lovenox, will need to consider transition to oral agent prior to discharge so the patient receives a total of 28-35 days of DVT prophylaxis Pain: Continue physical modalities in therapy and pain medications as needed to achieve functional pain control. Sleep: Monitor and address as needed. Bowel: Monitor and address as needed. Appetite: Monitor and address as needed. Discharge planning: Pending therapy progress and care plan meeting. Will continue discussion with therapy team, NORA, patient and family. Restrictions/ Precautions: Falls WB status: Partial weightbearing left lower extremity Functional Hx: ADLs: Independent Cognition: Independent Mobility: No AD Barriers to Discharge: Decreased mobility and ability to perform self care, balance deficits, weakness Estimated Length of Stay: 1014 days look to discharge on 03/04 with 3 in 1 and wheelchair pending weightbearing status Discharge Destination: Home alone with family next-door
[2021-02-27] MEDS: PROPRANOLOL 40 MG TAB PO SCH ×2 (12:02→21:39)
[2021-02-27] MEDS: oxyCODONE /ACETAMINOPHEN 5-325MG TAB PO PRN ×2 (18:24→21:40)
[2021-02-27] MEDS: LATANOPROST 0.005% OPHTH SOLN 2.5 ML OU SCH (18:25)
[2021-02-28] MEDS: LEVOTHYROXINE 100 MCG TAB PO SCH (05:22)
[2021-02-28] MEDS: FAMOTIDINE 20 MG TAB PO SCH (08:13)
[2021-02-28] MEDS: LISINOPRIL 10 MG TAB PO SCH (08:13)
[2021-02-28] MEDS: OXcarbazepine 300 MG TAB PO SCH ×2 (08:14→21:29)
[2021-02-28] MEDS: ENOXAPARIN 40 MG/0.4 ML INJ SUB-Q SCH (08:14)
[2021-02-28] MEDS: oxyCODONE /ACETAMINOPHEN 5-325MG TAB PO PRN (11:27)
[2021-02-28] MEDS: PROPRANOLOL 40 MG TAB PO SCH ×2 (11:27→21:33)
--- NOTE | 2021-02-28 13:01 | Progress Note ---
Subjective Date of service: 02/28/21 Principal diagnosis: Left Hip Fracture Interval history: 85-year-old female who experienced a fall on February 13, 2021 after being knocked over by her dog and landing on her left hip with pain. Patient was taken to the ED by EMS who noted that there is extreme pain with any movement of the left lower extremity which was externally rotated. X-ray of the pelvis showed a displaced intertrochanteric fracture of the proximal left femur. Orthopedics was consulted and the patient went to the OR on February 14, 2021 where she had a intramedullary nail placed for left femur repair by Dr. Loza. Patient tolerated the procedure well and had routine healing afterwards, was noted to have hyponatremia as well as postoperative anemia and hypertension. She was transfused a total of 2 units PRBCs. Interval History: Patient is participating in therapy and making reasonable progress. Taking rest breaks as needed. +BM. Denies palpitations, dyspnea, cough, N/V. Doing well with therapy, no acute events overnight. Weightbearing advanced to weightbearing as tolerated. Still having some issues with descending stairs utilizing one handrail which is what she has at home. We will continue to work with her now that her weightbearing status has improved and hopefully see an improvement with her stair usage to ensure that she has a safe return home. Left hip fracture status post IM nail: Advanced to weightbearing as tolerated, incision not infected or dehisced, pain control as needed, DVT prophylaxis. Anemia: Postoperative, improved after transfusion of 2 units PRBC. Currently stable, monitor Hypertension: Patient denies this diagnosis previously however she is frequently elevated. Blood pressure still labile, but does seem to be stabilizing. C ontinue to monitor over the next couple of days and look to increase lisinopril if needed. Heart rate is now within a reasonable rate above 60. Hypokalemia: Potassium is now normalized. Continue to monitor. Magnesium within normal limits Pain: Fairly controlled currently on oral medications ADL dysfunction: Continue to work with occupational therapy to improve ability to perform self-care as patient lives alone Mobility dysfunction: Continue to work with physical therapy to improve patien t's ability to ambulate with assistive device and to utilize stairs with only one rail All records, vitals, labs and medications were reviewed. No other issues per patient, nursing or therapy. Objective - Exam Narrative Exam: MUSCULOSKELETAL SPECIALTY EXAM CONSTITUTIONAL: Well developed, well nourished, appropriately groomed RESPIRATORY: Clear to auscultation bilaterally, no increased work of breathing CARDIOVASCULAR: Regular Rate/ Rhythm, no swelling, edema or tenderness in BUE or BLE. All extremities warm. GI: + bowel sounds, soft, NTTP, nondistended. INTEGUMENTARY: Surgical site at left hip with appropriate tenderness and bruising but no drainage or signs of infection, otherwise normal, no lesion, rash, masses or bruising noted in extremities. MUSCULOSKELETAL: BUE and BLE normal without defect, crepitus, subluxation, effusion, arthritic changes or TTP. BUE 4+/5, good ROM, with normal tone. RLE 4+/5 good ROM, with normal tone, LLE with fair range of motion and 4-/5 secondary to pain, normal tone NEURO: CN 2-12 grossly intact. Sensation intact in all extremities. Coordination intact in BUE. No tremor noted in 4 extremities. POSTURE and GAIT: Sitting posture good. Patient walking with RW PSYCH: Alert, oriented x3, affect appears normal. Insight appears intact. - Constitutional Vitals: Vital Signs - 12hr 02/28/21 02/28/21 02/28/21 05:08 07:00 08:13 Temperature 97.5 F L 98 F Pulse Rate 73 65 65 Respiratory 16 16 Rate Blood Pressure 137/65 141/50 Blood Pressure 141/50 [Right] O2 Sat by Pulse 100 99 Oximetry 02/28/21 11:54 Temperature 98.8 F Pulse Rate 61 Respiratory 16 Rate Blood Pressure Blood Pressure 123/48 [Right] O2 Sat by Pulse 94 Oximetry - Allied health notes Allied health notes reviewed: nursing, PT, OT FIMS assessment as documented by PT/OT/ST: Locomotion- walk/wheelchair Ambulation Distance 20 - Labs CBC & Chem 7: 02/26/21 05:09 02/26/21 05:09 Labs: Laboratory Results - last 72 hr 02/26/21 02/26/21 05:09 05:09 WBC 7.0 RBC 3.52 L Hgb 11.2 Hct 32.5 MCV 92 MCH 32 MCHC 34 RDW 15.9 H Plt Count 422 Sodium 135 L Potassium 4.0 D Chloride 99.3 Carbon Dioxide 27 Anion Gap 13 BUN 14 Creatinine 0.7 Estimated GFR > 60 BUN/Creatinine Ratio 20 Glucose 88 Calcium 8.0 L Assessment and Plan Left hip fracture status post IM nail: Advanced to weightbearing as tolerated, monitor incision site for any signs of infection or dehiscence. Pain control as needed with goal of weaning down pain medications discussed with patient. DVT prophylaxis for the least 28 to 35 days. Anemia: Postoperative in nature which has normalized now after receiving 2 units of PRBCs on the acute care side. We will continue to monitor CBC every few days and transfuse if needed for hemoglobin less than 7 Hypertension: Patient denies prior diagnosis of this however blood pressure has been elevated during much of her stay. Continue to monitor patient on new dose of propranolol and lisinopril and look to increase as needed for further blood pressure control. Goal less than 140/90. Seems to be improving on current medication doses Hypokalemia: replaced potassium, normalized. Monitor labs Glaucoma: Discuss patient's medications, she is no longer taking some of the medications that were listed on the admission orders and we will discontinue those. Continue to monitor for any worsening vision. Patient does note that she has poor vision out of the left eye. Trigeminal neuralgia on the left: Continue medications, monitor for any worsening issues ADL dysfunction: OT will work on improving ability to perform ADLs (including assistive devices) to increase independence and decrease caregiver burden and improve functional transfers and mobility training. Difficulty walking: PT will work on gait training and proper use of assistive devices and advance as appropriate to use of stairs and outside ambulation on uneven surfaces. Unsteadiness on feet: PT will work on improving static and dynamic sitting and standing balance as well as proper use of assistive devices to decrease risk of falls. Abnormality of gait: PT will work to improve safety and efficiency of gait through neuromotor training and gait training along with instruction on proper use of assistive devices. Muscle weakness: PT & OT will work on strengthening exercises to improve functional strength including mixture of closed and open kinetic chain exercises. Debility: PT & OT will work on improving overall functional status to improve participation with ADLs, mobility and social involvement. Fatigue: PT & OT will work on improving endurance through aerobic exercises and therapeutic activity while monitoring patients tolerance for activity and vital signs as needed. DVT ppx: Lovenox, will need to consider transition to oral agent prior to discharge so the patient receives a total of 28-35 days of DVT prophylaxis Pain: Continue physical modalities in therapy and pain medications as needed to achieve functional pain control. Sleep: Monitor and address as needed. Bowel: Monitor and address as needed. Appetite: Monitor and address as needed. Discharge planning: Pending therapy progress and care plan meeting. Will continue discussion with therapy team, SW, patient and family. Restrictions/ Precautions: Falls WB status: Weightbearing as tolerated left lower extremity Functional Hx: ADLs: Independent Cognition: Independent Mobility: No AD Barriers to Discharge: Decreased mobility and ability to perform self care, balance deficits, weakness Estimated Length of Stay: 1014 days, look to discharge on 03/04 with 3 in 1 and wheelchair or other assistive device depending on progress Discharge Destination: Home alone with family next-door
[2021-02-28] MEDS: LATANOPROST 0.005% OPHTH SOLN 2.5 ML OU SCH (21:28)
[2021-03-01] MEDS: oxyCODONE /ACETAMINOPHEN 5-325MG TAB PO PRN ×2 (04:26→21:35)
[2021-03-01] MEDS: LEVOTHYROXINE 100 MCG TAB PO SCH (05:35)
[2021-03-01] MEDS: FAMOTIDINE 20 MG TAB PO SCH (08:03)
[2021-03-01] MEDS: OXcarbazepine 300 MG TAB PO SCH ×2 (08:03→21:34)
[2021-03-01] MEDS: ENOXAPARIN 40 MG/0.4 ML INJ SUB-Q SCH (08:03)
[2021-03-01] MEDS: LISINOPRIL 10 MG TAB PO SCH (08:05)
[2021-03-01] MEDS: PROPRANOLOL 40 MG TAB PO SCH ×2 (09:21→21:33)
[2021-03-01] MEDS: LATANOPROST 0.005% OPHTH SOLN 2.5 ML OU SCH (19:32)
[2021-03-02] MEDS: LEVOTHYROXINE 100 MCG TAB PO SCH (06:02)
[2021-03-02] MEDS: FAMOTIDINE 20 MG TAB PO SCH (09:21)
[2021-03-02] MEDS: LISINOPRIL 10 MG TAB PO SCH (09:21)
[2021-03-02] MEDS: PROPRANOLOL 40 MG TAB PO SCH ×2 (09:21→22:11)
[2021-03-02] MEDS: OXcarbazepine 300 MG TAB PO SCH ×2 (09:21→22:09)
[2021-03-02] MEDS: ENOXAPARIN 40 MG/0.4 ML INJ SUB-Q SCH (09:22)
[2021-03-02] MEDS: LATANOPROST 0.005% OPHTH SOLN 2.5 ML OU SCH (19:30)
[2021-03-03] MEDS: LEVOTHYROXINE 100 MCG TAB PO SCH (06:17)
[2021-03-03] MEDS: FAMOTIDINE 20 MG TAB PO SCH (07:49)
[2021-03-03] MEDS: OXcarbazepine 300 MG TAB PO SCH ×2 (07:49→21:39)
[2021-03-03] MEDS: ENOXAPARIN 40 MG/0.4 ML INJ SUB-Q SCH (07:50)
[2021-03-03] MEDS: LISINOPRIL 10 MG TAB PO SCH (07:55)
[2021-03-03 08:14] LABS: Hematocrit 34.3 % (30.3-42.9); Hemoglobin 11.6 gm/dl (10.1-14.3); Mean Corpuscular HGB Conc 34 % (30-34); Mean Corpuscular Volume 93 fl (79-97); Platelet Count 453 K/mm3 (140-440); Red Blood Count 3.67 M/mm3 (3.65-5.03); Red Cell Distribution Width 17.2 % (13.2-15.2)
[2021-03-03 08:27] LABS: Blood Urea Nitrogen 11 mg/dL (7-17); Calcium 8.9 mg/dL (8.4-10.2); Hemolysis Index 1
[2021-03-03 08:46] LABS: BUN/Creatinine Ratio 16
--- NOTE | 2021-03-03 09:27 | Progress Note ---
Subjective Date of service: 03/03/21 Principal diagnosis: Left Hip Fracture Interval history: 85-year-old female who experienced a fall on February 13, 2021 after being knocked over by her dog and landing on her left hip with pain. Patient was taken to the ED by EMS who noted that there is extreme pain with any movement of the left lower extremity which was externally rotated. X-ray of the pelvis showed a displaced intertrochanteric fracture of the proximal left femur. Orthopedics was consulted and the patient went to the OR on February 14, 2021 where she had a intramedullary nail placed for left femur repair by Dr. Lzoa. Patient tolerated the procedure well and had routine healing afterwards, was noted to have hyponatremia as well as postoperative anemia and hypertension. She was transfused a total of 2 units PRBCs. Interval History: Patient is participating in therapy and making reasonable progress. Taking rest breaks as needed. +BM. Denies palpitations, dyspnea, cough, N/V. Doing well with therapy, no acute events overnight. Weightbearing advanced to weightbearing as tolerated. Still having some issues with descending stairs utilizing one handrail which is what she has at home. Left hip fracture status post IM nail: Advanced to weightbearing as tolerated, incision not infected or dehisced, pain control as needed, DVT prophylaxis. Anemia: Postoperative, improved after transfusion of 2 units PRBC. Currently stable, monitor Hypertension: Patient denies this diagnosis previously however she is frequently elevated. Blood pressure appears to be stabilized, heart rate also stabilized. Hypokalemia: Potassium is now normalized. Continue to monitor. Magnesium within normal limits Pain: Fairly controlled currently on oral medications ADL dysfunction: Continue to work with occupational therapy to improve ability to perform self-care as patient lives alone Mobility dysfunction: Continue to work with physical therapy to improve patient's ability to ambulate with assistive device and to utilize stairs with only one rail All records, vitals, labs and medications were reviewed. No other issues per patient, nursing or therapy. Objective - Exam Narrative Exam: MUSCULOSKELETAL SPECIALTY EXAM CONSTITUTIONAL: Well developed, well nourished, appropriately groomed RESPIRATORY: Clear to auscultation bilaterally, no increased work of breathing CARDIOVASCULAR: Regular Rate/ Rhythm, no swelling, edema or tenderness in BUE or BLE. All extremities warm. GI: + bowel sounds, soft, NTTP, nondistended. INTEGUMENTARY: Surgical site at left hip with appropriate tenderness and bruising but no drainage or signs of infection, otherwise normal, no lesion, rash, masses or bruising noted in extremities. MUSCULOSKELETAL: BUE and BLE normal without defect, crepitus, subluxation, effusion, arthritic changes or TTP. BUE 4+/5, good ROM, with normal tone. RLE 4+/5 good ROM, with normal tone, LLE with fair range of motion and 4-/5 secondary to pain, normal tone NEURO: CN 2-12 grossly intact. Sensation intact in all extremities. Coordination intact in BUE. No tremor noted in 4 extremities. POSTURE and GAIT: Sitting posture good. Patient walking with quad cane PSYCH: Alert, oriented x3, affect appears normal. Insight appears intact. - Constitutional Vitals: Vital Signs - 12hr 03/02/21 03/03/21 03/03/21 22:11 07:38 07:55 Temperature 97.9 F Pulse Rate 65 62 62 Respiratory 18 Rate Blood Pressure 137/53 147/53 147/53 O2 Sat by Pulse 97 Oximetry - Allied health notes Allied health notes reviewed: nursing, PT, OT FIMS assessment as documented by PT/OT/ST: Locomotion- walk/wheelchair Ambulation Distance 20 - Labs CBC & Chem 7: 03/03/21 07:32 03/03/21 07:32 Labs: Laboratory Results - last 72 hr 03/03/21 03/03/21 07:32 07:32 WBC 5.4 RBC 3.67 Hgb 11.6 Hct 34.3 MCV 93 MCH 32 MCHC 34 RDW 17.2 H Plt Count 453 H Sodium 133 L Potassium 4.2 Chloride 96.6 L Carbon Dioxide 34 H Anion Gap 7 BUN 11 Creatinine 0.7 Estimated GFR > 60 BUN/Creatinine Ratio 16 Glucose 88 Calcium 8.9 Assessment and Plan Left hip fracture status post IM nail: Advanced to weightbearing as tolerated, m onitor incision site for any signs of infection or dehiscence. Pain control as needed with goal of weaning down pain medications discussed with patient. DVT prophylaxis for the least 28 to 35 days. Anemia: Postoperative in nature which has normalized now after receiving 2 units of PRBCs on the acute care side. We will continue to monitor CBC every few days and transfuse if needed for hemoglobin less than 7 Hypertension: Patient denies prior diagnosis of this however blood pressure has been elevated during much of her stay. Goal less than 140/90. Improved on current dosing of medications. Hypokalemia: replaced potassium, normalized. Monitor labs Glaucoma: Discuss patient's medications, she is no longer taking some of the medications that were listed on the admission orders and we will discontinue those. Continue to monitor for any worsening vision. Patient does note that she has poor vision out of the left eye. Trigeminal neuralgia on the left: Continue medications, monitor for any worsening issues ADL dysfunction: OT will work on improving ability to perform ADLs (including assistive devices) to increase independence and decrease caregiver burden and improve functional transfers and mobility training. Difficulty walking: PT will work on gait training and proper use of assistive devices and advance as appropriate to use of stairs and outside ambulation on uneven surfaces. Unsteadiness on feet: PT will work on improving static and dynamic sitting and standing balance as well as proper use of assistive devices to decrease risk of falls. Abnormality of gait: PT will work to improve safety and efficiency of gait through neuromotor training and gait training along with instruction on proper use of assistive devices. Muscle weakness: PT & OT will work on strengthening exercises to improve functional strength including mixture of closed and open kinetic chain exercises. Debility: PT & OT will work on improving overall functional status to improve participation with ADLs, mobility and social involvement. Fatigue: PT & OT will work on improving endurance through aerobic exercises and therapeutic activity while monitoring patients tolerance for activity and vital signs as needed. DVT ppx: Lovenox, will need to consider transition to oral agent prior to discharge so the patient receives a total of 28-35 days of DVT prophylaxis Pain: Continue physical modalities in therapy and pain medications as needed to achieve functional pain control. Sleep: Monitor and address as needed. Bowel: Monitor and address as needed. Appetite: Monitor and address as needed. Discharge planning: Pending therapy progress and care plan meeting. Will continue discussion with therapy team, SW, patient and family. Restrictions/ Precautions: Falls WB status: Weightbearing as tolerated left lower extremity Functional Hx: ADLs: Independent Cognition: Independent Mobility: No AD Barriers to Discharge: Decreased mobility and ability to perform self care, b alance deficits, weakness Estimated Length of Stay: 1014 days, look to discharge on 03/04 with 3 in 1 and wheelchair or other assistive device depending on progress Discharge Destination: Home alone with family next-door
[2021-03-03] MEDS: PROPRANOLOL 10 MG TAB PO SCH ×2 (11:49→21:41)
[2021-03-03] MEDS: LATANOPROST 0.005% OPHTH SOLN 2.5 ML OU SCH (18:01)
[2021-03-04 06:03] VITALS: BP 132/53
[2021-03-04] MEDS: LEVOTHYROXINE 100 MCG TAB PO SCH (06:26)
[2021-03-04] MEDS ORDERED: RIVAROXABAN 10 MG TAB PO SCH (08:00)
[2021-03-04] MEDS: OXcarbazepine 300 MG TAB PO SCH (09:20)
[2021-03-04] MEDS: PROPRANOLOL 10 MG TAB PO SCH (09:21)
[2021-03-04] MEDS: FAMOTIDINE 20 MG TAB PO SCH (09:22)
[2021-03-04] MEDS: LISINOPRIL 10 MG TAB PO SCH (09:22)
--- NOTE | 2021-03-04 10:01 | Discharge Summary ---
Providers - Providers Date of Admission: 02/19/21 16:11 Date of discharge: 03/04/21 Attending physician: WILMER MANRIQUEZ III, MD 02/19/21 16:11 Occupational Therapy Evaluate and Treat [CONS] Routine Comment: Reason For Exam: ADL dysfunction Physical Therapy Evaluation and Treat [CONS] Routine Comment: Reason For Exam: Mobility Dysfunction 02/19/21 16:33 Consult to Case Management [CONS] Routine Services Needed at Discharge: Home Health Services Notified:: cn notified Primary care physician: FLOOR STEWARD/STEWARDESS Hospitalization Reason for admission: Left hip fracture Condition: Good Hospital course: 85-year-old female who experienced a fall on February 13, 2021 after being knocked over by her dog and landing on her left hip with pain. Patient was taken to the ED by EMS who noted that there is extreme pain with any movement of the left lower extremity which was externally rotated. X-ray of the pelvis showed a displaced intertrochanteric fracture of the proximal left femur. Orthopedics was consulted and the patient went to the OR on February 14, 2021 where she had a intramedullary nail placed for left femur repair by Dr. Loza. Patient tolerated the procedure well and had routine healing afterwards, was noted to have hyponatremia as well as postoperative anemia and hypertension. She was transfused a total of 2 units PRBCs. Left hip fracture status post IM nail: Advanced to weightbearing as tolerated, incision not infected or dehisced, pain control as needed, DVT prophylaxis for another 17 days on Xarelto (total of 35 days with prior days utilizing Lovenox). Patient does need to be careful about falls while on Xarelto and if she happens to fall and hit her head needs to go to the ER for evaluation with head CT to rule out intracranial bleed. Anemia: Postoperative, improved after transfusion of 2 units PRBC. Currently normalized and stable, monitor Hypertension: Patient denies this diagnosis previously however she is frequently elevated. Patient started on low-dose lisinopril with improvement in blood pressure and is currently stable within normal range. Hypokalemia: Potassium is now normalized. Continue to monitor. Magnesium within normal limits Pain: Fairly controlled currently on oral medications, has not needed pain medications in the last couple of days ADL dysfunction: Continue to work with occupational therapy to improve ability to perform self-care as patient lives alone, currently doing fairly well with only intermittent supervision needed. Mobility dysfunction: Continue to work with physical therapy to improve patient's ability to ambulate with assistive device and to utilize stairs with only one rail, contact-guard assist ascending and min assist descending stairs. Ambulating most appropriately with a rolling walker, quad cane use was attempted however patient was not as stable but she may progress to that in time. Would recommend at home that the patient is very careful with moving around the home while her dog are loose. We will have home health come in to continue working with the patient to improve her ability to ambulate safely within the household. Disposition: [id number] HOME UNDER HOME [facility] Final Discharge Diagnosis (Prints w/discharge instructions): Left hip fracture, hypertension Time spent for discharge: >30mins Core Measure Documentation - Palliative Care Palliative Care/ Comfort Measures: Not Applicable - Core Measures Any of the following diagnoses?: none Exam - Physical Exam Narrative exam: MUSCULOSKELETAL SPECIALTY EXAM CONSTITUTIONAL: Well developed, well nourished, appropriately groomed RESPIRATORY: Clear to auscultation bilaterally, no increased work of breathing CARDIOVASCULAR: Regular Rate/ Rhythm, no swelling, edema or tenderness in BUE or BLE. All extremities warm. GI: + bowel sounds, soft, NTTP, nondistended. INTEGUMENTARY: Surgical site at left hip with appropriate tenderness and bruising but no drainage or signs of infection, intact with zip line, otherwise normal, no lesion, rash, masses or bruising noted in extremities. MUSCULOSKELETAL: BUE and BLE normal without defect, crepitus, subluxation, effusion, arthritic changes or TTP. BUE 4+/5, good ROM, with normal tone. RLE 4+/5 good ROM, with normal tone, LLE with fair range of motion and 4/5 secondary to pain, normal tone NEURO: CN 2-12 grossly intact. Sensation intact in all extremities. Coordination intact in BUE. No tremor noted in 4 extremities. POSTURE and GAIT: Sitting posture good. Patient walking with quad cane but is more safe and appropriate with a rolling walker PSYCH: Alert, oriented x3, affect appears normal. Insight appears intact. - Constitutional Vitals: Temp Pulse Resp BP Pulse Ox 97.9 F 61 16 132/53 99 03/04/21 05:30 03/04/21 09:22 03/04/21 05:30 03/04/21 09:22 03/04/21 05:30 Plan Activity: advance as tolerated, fall precautions Weight Bearing Status: Weight Bear as Tolerated Diet: regular Wound: open to air (May cover with a small bandage if preferred, zip line will fall off over the next few days), keep clean and dry Special Instructions: record daily BP diary, physical therapy, occupational therapy, home health RN Durable Medical Equipment Needed Upon Discharge: Walker-Rolling Care Plan Goals: Patient was admitted for rehabilitation after sustaining a left hip fracture and undergoing placement of an IM nail by Dr. Loza. Patient's blood pressure was frequently in the 150-160 systolic range. Low-dose lisinopril was started and patient has stabilized into a normal range of 120- 140 systolic. Would recommend that the patient monitor her blood pressure as well as follow-up with PCP for further monitoring and adjustment of medications to help control blood pressure. Patient also experienced an episode of hypokalemia magnesium was checked which was normal, potassium was replaced and the patient has remained stable since. She was transfused 2 units of packed red blood cells on the acute care side after the surgery due to postoperative anemia. She has been stable ever since and her hemoglobin continues to increase and was 11.6 on 03/03/2021. Follow up with: PRIMARY CAREMD [Primary Care Provider] - 7 Days RODGER LOZA MD [Staff Physician] - 14 Days Prescriptions: Famotidine [Acid-Pep] 20 mg PO DAILY #30 tablet propranoloL [Inderal] 40 mg PO BID #60 tablet Levothyroxine Sodium [Levothyroxine] 100 mcg PO DAILY #30 capsule oxyCODONE /ACETAMINOPHEN [Percocet 5/325 mg] 1 tab PO Q6H PRN #15 tablet PRN Reason: Pain, Moderate (4-6) OXcarbazepine [Trileptal] 150 mg PO BID #60 tablet Rivaroxaban [Xarelto] 10 mg PO QDAY 17 Days #17 tablet lisinopriL [Zestril TAB] 10 mg PO QDAY #30 tablet
== END 2021-03-04 13:08 | disposition home or self-care (01) | DRG 536 ==
LOC: UNDOADMIN 12:22 → 3A 12:22 → 3B-SURG 16:11 → 3B 02-20 14:54
PROVIDERS: ADMIT Physical Medicine & Rehabilitation; ATTEND Physical Medicine & Rehabilitation
DX: S72.142A Displaced intertrochanteric fracture of left femur, initial encounter for closed fracture (principal); E87.1 Hypo-osmolality and hyponatremia; R53.81 Other malaise; D64.9 Anemia, unspecified; H40.9 Unspecified glaucoma; E03.9 Hypothyroidism, unspecified; G50.0 Trigeminal neuralgia; X58.XXXA Exposure to other specified factors, initial encounter; E87.6 Hypokalemia; Z60.2 Problems related to living alone; Z82.49 Family history of ischemic heart disease and other diseases of the circulatory system; Z88.0 Allergy status to penicillin; Z88.2 Allergy status to sulfonamides; Z90.49 Acquired absence of other specified parts of digestive tract; Z90.710 Acquired absence of both cervix and uterus; Y93.89 Activity, other specified; Y92.89 Other specified places as the place of occurrence of the external cause; Y99.8 Other external cause status
CPT/HCPCS: 36415; 80048; 80053; 83735; 85025; 85027; G0378; J1650; J2405

== ENCOUNTER 2021-04-22 10:33 | Outpatient (CLI) | payer MEDICARE, BC ==
--- NOTE | 2021-04-22 12:10 | XRay Report ---
LEFT HIP 2 VIEWS INDICATION: DISPLACED INTERTROCHANTERIC FRACTURE OF LEFT FEMUR/CLOSEDFRACTURE. COMPARISON: 02/14/2021 IMPRESSION: The internally fixated proximal left femur fracture appears unchanged in position and al ignment since 02/14/2021 intraoperative films. Calcified callus does appear to bridge the fracture site consistent with interval healing although fracture lines remain evident. No new acute osseous injury is appreciated. There is normal articulation at the left hip. Signer Name: Nick Gupta Jr, MD Signed: 04/22/2021 12:06 PM Workstation Name: [id number]
== END 2021-04-22 10:34 | disposition home or self-care (01) ==
LOC: XRAY 10:33
PROVIDERS: ATTEND Orthopaedic Surgery
DX: S72.142A Displaced intertrochanteric fracture of left femur, initial encounter for closed fracture (principal); X58.XXXA Exposure to other specified factors, initial encounter; Y93.89 Activity, other specified; Y92.89 Other specified places as the place of occurrence of the external cause; Y99.8 Other external cause status